=== PATIENT | female | born 1940 | race Caucasian/White ===

== ENCOUNTER 2017-01-25 12:04 | Inpatient (IN) ==
[2017-01-25] MEDS ORDERED: MIRAPEX PO PRN (14:49)
[2017-01-25] MEDS ORDERED: ULTRACET 37.5MG/325MG PO PRN (14:49)
[2017-01-25 15:20] LABS: MANUAL DIFF NEEDED? NO
[2017-01-25 15:24] LABS: BASO% 0.2 % (0.0-0.8); EOS# 0.03 X1000 (0.0-0.7); EOS% 0.3 % (0.0-10.0); HEMATOCRIT 42.5 % (37.0-47.0); HEMOGLOBIN 14.1 g/dL (12.0-16.0); IMM GRAN# 0.02 X1000 (0.0-0.04); IMM GRAN% 0.2 % (0.0-0.5); LYMPH# 1.09 X1000 (1.2-3.4); LYMPH% 12.6 % (20.5-51.1); MCHC 33.2 g/dL (33-37); MCV 93.4 FL (81-99); MONO# 0.85 X1000 (0.11-0.59); MONO% 9.8 % (1.7-9.3); MPV 10.4 FL (7.4-10.4); NEUT% 76.9 % (42.2-75.2); PLT 218 X1000 (130-400); RBC 4.55 XMIL (4.2-5.4)
[2017-01-25 15:44] LABS: ALBUMIN 4.2 g/dL (3.5-5.0); CALCIUM 9.7 mg/dL (8.8-10.2); POTASSIUM 3.6 mmol/L (3.5-5.1); TOTAL BILIRUBIN 0.38 mg/dL (0.20-1.00); TOTAL PROTEIN 7.5 g/dL (6.3-8.3)
[2017-01-25 15:46] LABS: HEMOGLOBIN A1C 5.6 % (4.8-6.0)
[2017-01-25 16:05] LABS: ALLEN TEST YES; BE -0.2 mmoll (-3.0-3.0); BLOOD TYPE ARTERIAL; DRAW SITE R RADIAL; METHB 0.5 % (0.0-1.5); PCO2(98.6) 44 mmHg (35-45); PO2(98.6) 69 mmHg (60-100); SAMPLE BLOOD; pH(98.6) 7.37 (7.35-7.45)
[2017-01-25 16:06] LABS: MODALITY CANNULA
--- NOTE | 2017-01-25 16:13 | EKG Report ---
Test Performed on : 01/25/2017 3:04:25 PM Test Reason : chest pain Blood Pressure : / mmHG Vent. Rate : 098 BPM Atrial Rate : 098 BPM P-R Int : 210 ms QRS Dur : 082 ms QT Int : 354 ms P-R-T Axes : 079 081 068 degrees QTc Int : 451 ms Sinus rhythm. with 1st degree AV block. Right atrial enlargement Borderline ECG When compared with ECG of 20-JUN-2014 18:43, No significant change was found Confirmed by Dayan ELLSWORTH, Ramirez Berrios ([id number]) on 01/25/2017 7:03:30 PM
[2017-01-25] MEDS: LEVAQUIN 500 MG/D5W 500 MG/100 ML IVPB IV SCH (16:35)
[2017-01-25] MEDS: LOVENOX SUBQ SCH (16:35)
[2017-01-25] MEDS: SOLU-MEDROL IV SCH (16:35)
[2017-01-25] MEDS: ZOSYN 3.375 GM/NS 3.375 GM/50 ML IVPB IV SCH ×2 (17:47→23:41)
[2017-01-25] MEDS ORDERED: DUONEB (A & A) INH ONE (18:10)
[2017-01-25 21:51] LABS: URINE MICRO REVIEW NEEDED? NO; URINE SOURCE CLEAN CATCH
[2017-01-25 22:00] LABS: BILIRUBIN URINE NEGATIVE (NEGATIVE); BLOOD URINE NEGATIVE (NEGATIVE); COLOR YELLOW; GLUCOSE URINE 100 mg/dL (NEGATIVE); LEUKOCYTES URINE NEGATIVE (NEGATIVE); NITRITE URINE POSITIVE (NEGATIVE); PH URINE 5.5; PROTEIN URINE TRACE mg/dL (NEGATIVE); SP GRAVITY URINE 1.019; TURBIDITY URINE HAZY (CLEAR); UROBILINOGEN URINE NORMAL (NORMAL)
--- NOTE | 2017-01-25 22:00 | HISTORY AND PHYSICAL ---
CHIEF COMPLAINT: Shortness of breath, cough, wheezing for the last 1 week. HISTORY OF PRESENT ILLNESS: She is 76-year-old pleasant white female, was evaluated in outpatient clinic with the above symptoms. She was treated with aggressive oral antibiotics. She failed to improve. Despite advice she continues to smoke. In my office she is wheezing. Chest x-ray showed COPD changes, early infiltrate in the left lower lobe. Basically admitted to the hospital for acute COPD exacerbation. She denies of any chest pain, shortness of breath, PND, orthopnea. PAST MEDICAL HISTORY: COPD, type 2 diabetes, chronic kidney disease, hyperlipidemia, glaucoma, gout, diverticulosis, CAD, history of acid reflux disease, restless legs syndrome, peripheral vascular disease. PAST SURGICAL HISTORY: Achilles tendon repair, bypass surgery, right benign breast biopsy, bilateral cataracts, left carotid endarterectomy, bilateral iliac stents, appendectomy, cholecystectomy, hysterectomy. MEDICINES: Flexeril 10 mg daily, Alphagan eye drops both eyes b.i.d., pravastatin 40 mg daily, Xalatan 1 drop both eyes b.i.d., Trusopt 1 drop both eyes b.i.d., Aldactone 25 daily, Singulair 10 mg daily, Prefest 1 tablet daily, Colace 100 p.o. b.i.d., vitamin D3 1000 units daily, Prilosec 40 mg daily, Lasix 20 mg daily, allopurinol 100 daily, Mirapex 0.25 mg daily, Ultracet 1 tab q.8, glipizide 5 mg daily, multivitamin 1 tablet daily, Pletal 50 p.o. b.i.d., Plavix 75 daily, gabapentin 200 daily in the evening 100 in the morning, aspirin 81 mg daily, Lopid 600 p.o. b.i.d. ALLERGIES: Reported to [facility]. SOCIAL HISTORY: , no children, lives in [place], smoking half a pack a day, retired. FAMILY HISTORY: Father of [place] at 71. Mom of kidney cancer at 75. HEALTH MAINTENANCE: Flu vaccine 2015, pneumococcal vaccine 2013, shingles 2011, tetanus 06/2014, mammography 2014, DEXA scan 2012, colonoscopy 2013. REVIEW OF SYSTEMS: HEENT: No headache, no vision problem, no earache, no sore throat. Neck: No goiter. No bruits, no lymphadenopathy. Cardiopulmonary: No chest pain, shortness of breath, cough, wheezing, no PND, no orthopnea. GI: No nausea, vomiting, abdominal pain. : No history of hesitancy, frequency. No swelling of feet. No claudication symptoms. Neuro: No focal symptoms, weakness or seizures. PHYSICAL EXAMINATION: VITAL SIGNS: Stable, afebrile and mild respiratory distress. HEENT: Atraumatic, normocephalic. Pupils equal, react to light. TMs are normal. Nose and throat congested. Postnasal drainage. CHEST: Bilateral wheezing, rhonchi. HEART: Sounds are regular, no murmur. BELLY: Soft, nontender. Good bowel sounds. No masses palpable. EXTREMITIES: No peripheral edema, cyanosis. NEURO: No obvious neurological deficits. INVESTIGATIONS: CBC. White cell count 8.6, hematocrit 42, platelets 218,000. ABG pH is 7.37, pCO2 44, PO2 69 on 38%. SMA 7, sodium 140, potassium 3.6, chloride 100, BUN 34, creatinine 1.6, glucose 142 and proBNP, cardiac enzymes were normal. Chest x-ray COPD changes, possible infiltrate in the left lower lobe. EKG normal sinus, nothing acute for ischemia. ASSESSMENT AND PLAN: 1. 76-year-old white female admitted to the hospital for acute chronic obstructive pulmonary disease exacerbation. Plan is IV steroids, IV Zosyn, bronchodilators, will continue Breo and Spiriva. 2. Coronary artery disease status post bypass, stable. 3. Peripheral vascular disease stable. 4. Glaucoma. Continue eye drops. 5. Chronic tobacco abuse. Nicotrol patches. 6. Hyperlipidemia on pravastatin. 7. Deep venous thrombosis, gastrointestinal prophylaxis with Lovenox and Protonix respectively. 8. Reconcile home medications and will follow up on the clinical course. cc: Valerio Venegas MD
[2017-01-25 22:01] LABS: UR EPITHELIAL CELLS <10 /HPF (<10); URINE BACTERIA 3+ /HPF; URINE RBC <10 /HPF (<10)
[2017-01-25] MEDS: NICODERM PATCH TD SCH (23:41)
[2017-01-25] MEDS: PLETAL PO SCH (23:42)
[2017-01-25] MEDS: ALPHAGAN P 0.1% OPHTH SOLN BOTH EYES SCH (23:42)
[2017-01-25] MEDS: COLACE PO SCH (23:42)
[2017-01-25] MEDS: XALATAN 0.005% OPH SOLN BOTH EYES SCH (23:43)
[2017-01-25] MEDS: TRUSOPT 2% OPH SOLN BOTH EYES SCH (23:43)
[2017-01-26] MEDS: SOLU-MEDROL IV SCH ×4 (00:07→23:15)
[2017-01-26] MEDS: FLEXERIL PO PRN (00:08)
[2017-01-26] MEDS: AMBIEN PO PRN (00:10)
[2017-01-26] MEDS ORDERED: DUONEB (A & A) INH ONE (00:49)
[2017-01-26] MEDS: DUONEB (A & A) INH SCH ×6 (02:05→23:13)
[2017-01-26] MEDS: ZOSYN 3.375 GM/NS 3.375 GM/50 ML IVPB IV SCH ×3 (06:00→17:29)
[2017-01-26] MEDS: GLUCOTROL PO SCH ×2 (06:00→08:26)
[2017-01-26] MEDS: BREO ELLIPTA 100/25 MCG INH INH SCH (08:20)
[2017-01-26] MEDS: SPIRIVA INH SCH (08:21)
[2017-01-26] MEDS: METAMUCIL PO SCH ×2 (08:25)
[2017-01-26] MEDS: NICODERM PATCH TD SCH (08:25)
[2017-01-26] MEDS: COLACE PO SCH ×2 (08:25→21:51)
[2017-01-26] MEDS: PLETAL PO SCH ×2 (08:25→21:51)
[2017-01-26] MEDS: VITAMIN D PO SCH (08:25)
[2017-01-26] MEDS: ZYLOPRIM PO SCH (08:25)
[2017-01-26] MEDS: ALDACTONE PO SCH (08:25)
[2017-01-26] MEDS: THERA M PLUS PO SCH (08:25)
[2017-01-26] MEDS: PRAVACHOL PO SCH (08:26)
[2017-01-26] MEDS: SINGULAIR PO SCH (08:26)
[2017-01-26] MEDS: TRUSOPT 2% OPH SOLN BOTH EYES SCH ×2 (08:26→21:52)
[2017-01-26] MEDS: PLAVIX PO SCH (08:26)
[2017-01-26] MEDS: PATIENT'S OWN MED PO SCH ×2 (08:26→08:28)
[2017-01-26] MEDS: TRICOR PO SCH (08:26)
[2017-01-26] MEDS: ALPHAGAN P 0.1% OPHTH SOLN BOTH EYES SCH ×2 (08:26→21:52)
[2017-01-26] MEDS: XALATAN 0.005% OPH SOLN BOTH EYES SCH ×2 (08:29→21:52)
--- NOTE | 2017-01-26 08:34 | Diag Imaging Result Document ---
PROCEDURE NAME: CHEST-2 VIEWS - 01/26/2017 FRONTAL AND LATERAL CHEST, TWO VIEWS: COMPARISON: 03/10/2016. FINDINGS: Sternal wires are present. The lungs are hyperexpanded. Mild increased AP diameter to the chest. The heart is not enlarged. The pulmonary vessels are small. No pleural effusions. No pneumonia. IMPRESSION: Emphysema.
--- NOTE | 2017-01-26 11:38 | PROGRESS NOTE ---
DATE: 01/26/2017 SUBJECTIVE: Still complains of wheezing and shortness of breath. No chest pain. REVIEW OF SYSTEMS: None reported. OBJECTIVE: Vital signs: Stable. Slightly tachycardic. HEENT: Within normal limits. Neck: Supple. Chest: Bilateral wheezing. Heart: Sounds are regular. Abdomen: Belly is soft, nontender. Extremities: No peripheral edema, cyanosis, clubbing. Labs: Reported follow up chest x-ray, COPD. Urine dipstick positive for UTI. ASSESSMENT AND PLAN: 1. Acute chronic obstructive pulmonary disease exacerbation. Continue on Levaquin, Zosyn, IV steroids, and bronchodilators. 2. Urinary tract infection. Continue present antibiotics. 3. Chronic tobacco abuse. Quit smoking. 4. Reconcile home medications. 5. Deep venous thrombosis prophylaxis with Lovenox. LEVEL OF DOCUMENTATION: 15 minutes. cc: Valerio Venegas MD
[2017-01-26] MEDS: LEVAQUIN 500 MG/D5W 500 MG/100 ML IVPB IV SCH (14:14)
[2017-01-26] MEDS: LOVENOX SUBQ SCH (14:14)
[2017-01-26] MEDS: NEURONTIN PO SCH ×2 (14:14→21:51)
[2017-01-27] MEDS: ZOSYN 3.375 GM/NS 3.375 GM/50 ML IVPB IV SCH ×4 (00:51→20:00)
[2017-01-27] MEDS: DUONEB (A & A) INH SCH ×6 (03:33→23:30)
[2017-01-27] MEDS: SOLU-MEDROL IV SCH ×3 (06:12→23:00)
[2017-01-27] MEDS: GLUCOTROL PO SCH (06:12)
[2017-01-27] MEDS: SPIRIVA INH SCH (08:28)
[2017-01-27] MEDS: BREO ELLIPTA 100/25 MCG INH INH SCH (08:28)
--- NOTE | 2017-01-27 09:37 | PROGRESS NOTE ---
DATE: 01/27/2017 SUBJECTIVE: The patient is better. Complains of leg pains and improved after Neurontin. No chest pain. Decreased shortness of breath, cough, wheezing. REVIEW OF SYSTEMS: Rest of the review of systems are normal. PHYSICAL EXAMINATION: Vital Signs: Stable, afebrile. Blood pressure is 120/57, 2 L nasal cannula 95%. HEENT: Examination within normal limits. Neck: Supple. No lymphadenopathy. No goiter. Chest: Bilateral wheezing improving. Heart: Heart sounds are regular. Abdomen: Belly is soft, nontender. Good bowel sounds. Extremities: No edema. INVESTIGATIONS: Cardiac enzymes and BNP were negative. ASSESSMENT AND PLAN: 1. Acute chronic obstructive pulmonary disease exacerbation is improving. Continue present medical therapy with intravenous Levaquin, intravenous Zosyn, and bronchodilators. 2. Tobacco abuse. Quit smoking. 3. Urinary tract infection. Follow up on culture and sensitivity. 4. Diabetes is well controlled and currently stable. LEVEL OF DOCUMENTATION: 15 minutes. cc: Valerio Venegas MD
[2017-01-27] MEDS: ALPHAGAN P 0.1% OPHTH SOLN BOTH EYES SCH ×2 (09:57→21:56)
[2017-01-27] MEDS: XALATAN 0.005% OPH SOLN BOTH EYES SCH ×2 (09:57→21:56)
[2017-01-27] MEDS: TRICOR PO SCH (09:58)
[2017-01-27] MEDS: METAMUCIL PO SCH ×2 (09:58)
[2017-01-27] MEDS: SINGULAIR PO SCH (09:58)
[2017-01-27] MEDS: VITAMIN D PO SCH (09:58)
[2017-01-27] MEDS: PRAVACHOL PO SCH (09:58)
[2017-01-27] MEDS: PATIENT'S OWN MED PO SCH (09:58)
[2017-01-27] MEDS: NEURONTIN PO SCH ×2 (09:58→21:59)
[2017-01-27] MEDS: PLAVIX PO SCH (09:58)
[2017-01-27] MEDS: ALDACTONE PO SCH (09:58)
[2017-01-27] MEDS: PLETAL PO SCH ×2 (09:58→21:59)
[2017-01-27] MEDS: THERA M PLUS PO SCH (09:58)
[2017-01-27] MEDS: TRUSOPT 2% OPH SOLN BOTH EYES SCH ×2 (09:58→21:57)
[2017-01-27] MEDS: NICODERM PATCH TD SCH (09:59)
[2017-01-27] MEDS: COLACE PO SCH ×2 (09:59→21:59)
[2017-01-27] MEDS: ZYLOPRIM PO SCH (09:59)
[2017-01-27] MEDS: LOVENOX SUBQ SCH (14:02)
[2017-01-27] MEDS: LEVAQUIN 500 MG/D5W 500 MG/100 ML IVPB IV SCH (15:58)
[2017-01-28] MEDS: ZOSYN 3.375 GM/NS 3.375 GM/50 ML IVPB IV SCH ×4 (02:00→19:38)
[2017-01-28] MEDS: DUONEB (A & A) INH SCH ×5 (03:40→22:51)
[2017-01-28] MEDS: SOLU-MEDROL IV SCH ×2 (06:40→15:10)
[2017-01-28] MEDS: GLUCOTROL PO SCH (06:40)
[2017-01-28] MEDS: SPIRIVA INH SCH (08:07)
[2017-01-28] MEDS: BREO ELLIPTA 100/25 MCG INH INH SCH (08:07)
[2017-01-28] MEDS: NICODERM PATCH TD SCH (09:36)
[2017-01-28] MEDS: METAMUCIL PO SCH ×2 (09:37)
[2017-01-28] MEDS: PLETAL PO SCH ×2 (09:37→21:18)
[2017-01-28] MEDS: ALDACTONE PO SCH (09:37)
[2017-01-28] MEDS: PLAVIX PO SCH (09:38)
[2017-01-28] MEDS: PRAVACHOL PO SCH (09:38)
[2017-01-28] MEDS: THERA M PLUS PO SCH (09:38)
[2017-01-28] MEDS: TRICOR PO SCH (09:38)
[2017-01-28] MEDS: COLACE PO SCH ×2 (09:38→21:19)
[2017-01-28] MEDS: VITAMIN D PO SCH (09:38)
[2017-01-28] MEDS: NEURONTIN PO SCH ×2 (09:38→21:19)
[2017-01-28] MEDS: SINGULAIR PO SCH (09:38)
[2017-01-28] MEDS: ALPHAGAN P 0.1% OPHTH SOLN BOTH EYES SCH ×2 (09:39→21:17)
[2017-01-28] MEDS: TRUSOPT 2% OPH SOLN BOTH EYES SCH ×2 (09:39→21:17)
[2017-01-28] MEDS: XALATAN 0.005% OPH SOLN BOTH EYES SCH ×2 (09:39→21:17)
[2017-01-28] MEDS: ZYLOPRIM PO SCH (09:40)
[2017-01-28] MEDS: PATIENT'S OWN MED PO SCH (09:40)
--- NOTE | 2017-01-28 10:42 | PROGRESS NOTE ---
DATE: 01/28/2017 SUBJECTIVE: The patient is not offering any complaints. No chest pain. No shortness of breath. No PND. No orthopnea. Wheezing is improving. REVIEW OF SYSTEMS: None reported. PHYSICAL EXAMINATION: Vital Signs: Vitals are stable. HEENT: Examination within normal limits. Neck: Supple. No lymphadenopathy. Lungs: Scattered wheezing, mostly on the left side. Heart: Heart sounds are regular. Rest of the examination is benign. ASSESSMENT AND PLAN: 1. Acute chronic obstructive pulmonary disease exacerbation, currently stable on intravenous Levaquin and intravenous Flagyl. 2. Diabetes is well controlled. 3. Deep venous thrombosis prophylaxis. 4. History of urinary tract infection. Continue present antibiotics. Repeat urinalysis only if she has symptoms. 5. Level of documentation, 15 minutes. cc: Valerio Venegas MD
[2017-01-28] MEDS: LEVAQUIN 500 MG/D5W 500 MG/100 ML IVPB IV SCH (15:11)
[2017-01-28] MEDS: LOVENOX SUBQ SCH (15:11)
[2017-01-29] MEDS: FLEXERIL PO PRN ×2 (01:06→15:55)
[2017-01-29] MEDS: ZOSYN 3.375 GM/NS 3.375 GM/50 ML IVPB IV SCH ×4 (01:11→20:24)
[2017-01-29] MEDS: DUONEB (A & A) INH SCH ×6 (03:48→22:54)
[2017-01-29] MEDS: SOLU-MEDROL IV SCH ×3 (07:19→22:06)
[2017-01-29] MEDS: GLUCOTROL PO SCH (07:19)
[2017-01-29] MEDS: BREO ELLIPTA 100/25 MCG INH INH SCH (07:57)
[2017-01-29] MEDS: SPIRIVA INH SCH (07:57)
[2017-01-29] MEDS: TRUSOPT 2% OPH SOLN BOTH EYES SCH ×2 (09:52→20:23)
[2017-01-29] MEDS: ALPHAGAN P 0.1% OPHTH SOLN BOTH EYES SCH ×2 (09:53→20:23)
[2017-01-29] MEDS: XALATAN 0.005% OPH SOLN BOTH EYES SCH ×2 (09:53→20:23)
[2017-01-29] MEDS: COLACE PO SCH ×2 (09:57→20:24)
[2017-01-29] MEDS: PLETAL PO SCH ×2 (09:57→20:24)
[2017-01-29] MEDS: VITAMIN D PO SCH (09:57)
[2017-01-29] MEDS: PRAVACHOL PO SCH (09:57)
[2017-01-29] MEDS: TRICOR PO SCH (09:57)
[2017-01-29] MEDS: METAMUCIL PO SCH ×2 (09:57)
[2017-01-29] MEDS: NEURONTIN PO SCH ×2 (09:57→20:24)
[2017-01-29] MEDS: SINGULAIR PO SCH (09:57)
[2017-01-29] MEDS: ALDACTONE PO SCH (09:57)
[2017-01-29] MEDS: PLAVIX PO SCH (09:57)
[2017-01-29] MEDS: THERA M PLUS PO SCH (09:58)
[2017-01-29] MEDS: NICODERM PATCH TD SCH (09:58)
[2017-01-29] MEDS: ZYLOPRIM PO SCH (09:58)
[2017-01-29] MEDS: PATIENT'S OWN MED PO SCH (09:59)
[2017-01-29 11:03] LABS: URINE MICRO REVIEW NEEDED? NO; URINE SOURCE VOIDED
[2017-01-29 11:07] LABS: BILIRUBIN URINE NEGATIVE (NEGATIVE); BLOOD URINE NEGATIVE (NEGATIVE); COLOR YELLOW; GLUCOSE URINE NEGATIVE (NEGATIVE); LEUKOCYTES URINE NEGATIVE (NEGATIVE); NITRITE URINE NEGATIVE (NEGATIVE); PROTEIN URINE NEGATIVE (NEGATIVE); SP GRAVITY URINE 1.017; TURBIDITY URINE CLEAR (CLEAR); UR EPITHELIAL CELLS <10 /HPF (<10); URINE BACTERIA NEGATIVE /HPF; URINE RBC <10 /HPF (<10); URINE WBC <10 /HPF (<10); UROBILINOGEN URINE NORMAL (NORMAL)
--- NOTE | 2017-01-29 12:06 | PROGRESS NOTE ---
DATE: 01/29/2017 SUBJECTIVE: A little bit of shortness of breath, wheezing, slowly improving. REVIEW OF SYSTEMS: None reported other than recurrent UTI. OBJECTIVE: Vital Signs: Stable. HEENT: Within normal limits. Neck: Supple. No lymphadenopathy. No goiter. Chest: Bilateral air entry. No rales, no wheezing. Heart: Sounds are regular. Abdomen: Belly is soft, nontender. Good bowel sounds. No masses palpable. Neurologic: Nonfocal. INVESTIGATIONS: CBC: White cell count 8.6, hematocrit 42, platelets 218,000. ABG, pH is 7.37, pCO2 44, PO2 69. SMA 7, creatinine is 1.6. Urinalysis positive for nitrate. ASSESSMENT AND PLAN: 1. Acute chronic obstructive pulmonary disease exacerbation slowly improving. Continue the present medical therapy. Hopefully, he will be discharged in the morning. 2. Recurrent urinary tract infection. Follow up UA and C S. LEVEL OF DOCUMENTATION: Fifteen minutes. cc: Valerio Venegas MD
[2017-01-29] MEDS: LEVAQUIN 500 MG/D5W 500 MG/100 ML IVPB IV SCH (14:41)
[2017-01-29] MEDS: LOVENOX SUBQ SCH (14:41)
[2017-01-30] MEDS: ZOSYN 3.375 GM/NS 3.375 GM/50 ML IVPB IV SCH ×2 (01:49→09:31)
[2017-01-30] MEDS: SOLU-MEDROL IV SCH ×4 (03:24→20:59)
[2017-01-30] MEDS: DUONEB (A & A) INH SCH ×6 (03:46→22:52)
[2017-01-30] MEDS: GLUCOTROL PO SCH (06:24)
[2017-01-30 07:19] LABS: BASO% 0.1 % (0.0-0.8); EOS# 0.01 X1000 (0.0-0.7); EOS% 0.1 % (0.0-10.0); IMM GRAN# 0.16 X1000 (0.0-0.04); IMM GRAN% 1.5 % (0.0-0.5); LYMPH# 0.77 X1000 (1.2-3.4); LYMPH% 7.3 % (20.5-51.1); MANUAL DIFF NEEDED? YES; MCH 30.4 PG (27-31); MCHC 32.6 g/dL (33-37); MCV 93.3 FL (81-99); MONO# 0.51 X1000 (0.11-0.59); MONO% 4.8 % (1.7-9.3); MPV 11.2 FL (7.4-10.4); NEUT% 86.2 % (42.2-75.2); PLT 205 X1000 (130-400); RBC 4.61 XMIL (4.2-5.4)
[2017-01-30 07:35] LABS: CALCIUM 9.4 mg/dL (8.8-10.2)
[2017-01-30 07:51] LABS: BANDS 2 % (0-1); LYMPHS 16 % (21-51); MONO 2 % (1-9)
[2017-01-30] MEDS: BREO ELLIPTA 100/25 MCG INH INH SCH (08:42)
[2017-01-30] MEDS: SPIRIVA INH SCH (08:43)
[2017-01-30] MEDS: ALPHAGAN P 0.1% OPHTH SOLN BOTH EYES SCH ×2 (09:31→20:55)
[2017-01-30] MEDS: TRUSOPT 2% OPH SOLN BOTH EYES SCH ×2 (09:31→20:55)
[2017-01-30] MEDS: NICODERM PATCH TD SCH (09:31)
[2017-01-30] MEDS: XALATAN 0.005% OPH SOLN BOTH EYES SCH ×2 (09:32→20:55)
[2017-01-30] MEDS: ZYLOPRIM PO SCH (09:32)
[2017-01-30] MEDS: VITAMIN D PO SCH (09:33)
[2017-01-30] MEDS: COLACE PO SCH ×2 (09:33→20:54)
[2017-01-30] MEDS: NEURONTIN PO SCH ×2 (09:33→20:54)
[2017-01-30] MEDS: PLAVIX PO SCH (09:33)
[2017-01-30] MEDS: METAMUCIL PO SCH ×2 (09:33)
[2017-01-30] MEDS: THERA M PLUS PO SCH (09:33)
[2017-01-30] MEDS: TRICOR PO SCH (09:33)
[2017-01-30] MEDS: PLETAL PO SCH ×2 (09:33→20:54)
[2017-01-30] MEDS: ALDACTONE PO SCH (09:33)
[2017-01-30] MEDS: PRAVACHOL PO SCH (09:33)
[2017-01-30] MEDS: SINGULAIR PO SCH (09:33)
[2017-01-30] MEDS: PATIENT'S OWN MED PO SCH (09:34)
[2017-01-30] MEDS: INVANZ 1 GM/NS 1 GM/50 ML IVPB IV SCH (14:35)
[2017-01-30] MEDS: LOVENOX SUBQ SCH (14:36)
--- NOTE | 2017-01-30 14:36 | PROGRESS NOTE ---
DATE: 01/30/2017 SUBJECTIVE: Patient is doing very well. URI symptoms improving. Complains of dysuria. Old charts are reviewed. She was treated E. coli ESBL positive and resistant to antibiotics. REVIEW OF SYSTEMS: None reported except dysuria. On exam vitals are stable.HEENT: Within normal limits. Neck: Supple. No lymphadenopathy. No goiter. Chest: Wheezing improved. Heart: Sounds are regular. Abdomen: Belly is soft, nontender. Good bowel sounds. Urine cultures repeat was pending but UA dipstick is positive ESBL positive E. coli. ASSESSMENT AND PLAN: 1. ESBL E. coli, and we will discontinue the Zosyn and changing to Invanz 1 g daily. 2. COPD is better. 3. Follow up on the urine for C and S. Decrease the IV steroids. We will hold the discharge today. Discussed about ESBL E. coli, and continue to abstain from smoking. Level of documentation is 25 minutes. cc: Valerio Venegas MD
[2017-01-30] MEDS: LEVAQUIN 500 MG/D5W 500 MG/100 ML IVPB IV SCH (15:16)
[2017-01-30] MEDS: FLEXERIL PO PRN (23:50)
[2017-01-30] MEDS: AMBIEN PO PRN (23:50)
[2017-01-31] MEDS: DUONEB (A & A) INH SCH ×6 (03:39→22:55)
[2017-01-31] MEDS: GLUCOTROL PO SCH (06:13)
[2017-01-31] MEDS: SOLU-MEDROL IV SCH ×3 (06:13→21:28)
[2017-01-31] MEDS: SPIRIVA INH SCH (07:33)
[2017-01-31] MEDS: BREO ELLIPTA 100/25 MCG INH INH SCH (07:34)
[2017-01-31] MEDS: METAMUCIL PO SCH ×2 (09:12)
[2017-01-31] MEDS: ALDACTONE PO SCH (09:12)
[2017-01-31] MEDS: COLACE PO SCH ×2 (09:12→21:28)
[2017-01-31] MEDS: TRICOR PO SCH (09:12)
[2017-01-31] MEDS: PRAVACHOL PO SCH (09:12)
[2017-01-31] MEDS: NEURONTIN PO SCH ×2 (09:12→21:28)
[2017-01-31] MEDS: PLETAL PO SCH ×2 (09:12→21:28)
[2017-01-31] MEDS: VITAMIN D PO SCH (09:12)
[2017-01-31] MEDS: PLAVIX PO SCH (09:12)
[2017-01-31] MEDS: NICODERM PATCH TD SCH (09:12)
[2017-01-31] MEDS: SINGULAIR PO SCH (09:12)
[2017-01-31] MEDS: PATIENT'S OWN MED PO SCH (09:13)
[2017-01-31] MEDS: THERA M PLUS PO SCH (09:13)
[2017-01-31] MEDS: TRUSOPT 2% OPH SOLN BOTH EYES SCH ×2 (09:13→21:13)
[2017-01-31] MEDS: ZYLOPRIM PO SCH (09:13)
[2017-01-31] MEDS: XALATAN 0.005% OPH SOLN BOTH EYES SCH ×2 (09:14→21:13)
[2017-01-31] MEDS: ALPHAGAN P 0.1% OPHTH SOLN BOTH EYES SCH ×2 (09:14→21:13)
[2017-01-31] MEDS: INVANZ 1 GM/NS 1 GM/50 ML IVPB IV SCH (13:43)
--- NOTE | 2017-01-31 16:20 | PROGRESS NOTE ---
DATE: 01/31/2017 SUBJECTIVE: Complaints of lower abdominal pain, dysuria. URI symptoms are improving. REVIEW OF SYSTEMS: None reported. PHYSICAL EXAMINATION: Vital Signs: Afebrile. Vitals are stable. HEENT: Within normal limits. Neck: Supple. No lymphadenopathy. No goiter. Chest: Decreased wheezing. Cardiovascular: Heart sounds are regular. Abdomen: Belly is soft, nontender. Good bowel sounds. No masses palpable. LABS: None done. Repeat urinalysis is clear. Cultures are negative. ASSESSMENT AND PLAN: 1. Acute chronic obstructive pulmonary disease exacerbation, improving. 2. Recurrent urinary tract infection, extended spectrum beta-lactamase positive, Escherichia coli. Ultrasound of the renal and bladder. Continue on IV Invanz and Levaquin. Decrease the prednisone to 40 mg IV q.12. Discussed with the patient. Follow up on ultrasound. LEVEL OF DOCUMENTATION: 25 minutes. cc: Valerio Venegas MD
--- NOTE | 2017-01-31 16:25 | Diag Imaging Result Document ---
PROCEDURE NAME: US ABDOMEN-COMPLETE - 01/31/2017 ABDOMINAL ULTRASOUND: FINDINGS: Normal pancreas, aorta, and inferior vena cava. The gallbladder has been removed. No focal hepatic abnormality. Normal right kidney with a 1.7 cm cyst in the mid kidney. No hydronephrosis. The common bile duct measures 1.1 cm. The spleen is not enlarged. No ascites. Normal left kidney. No hydronephrosis. IMPRESSION: 1. Cholecystectomy. 2. Small right renal cyst.
--- NOTE | 2017-01-31 16:26 | Diag Imaging Result Document ---
PROCEDURE NAME: US PELVIC NON-EDUCATIONAL/DEVELOPMENT ASSISTANT COMPLETE - 01/31/2017 PELVIC ULTRASOUND: FINDINGS: Neither the uterus nor the ovaries are identified. These apparently have been removed. The urinary bladder is mild to moderately distended. No focal abnormality. No adnexal mass. No free fluid. IMPRESSION: Negative exam.
[2017-01-31] MEDS: LEVAQUIN 500 MG/D5W 500 MG/100 ML IVPB IV SCH (16:59)
[2017-01-31] MEDS: LOVENOX SUBQ SCH (16:59)
[2017-01-31] MEDS: FLEXERIL PO PRN (21:35)
[2017-02-01] MEDS: DUONEB (A & A) INH SCH ×6 (03:48→22:53)
[2017-02-01] MEDS: GLUCOTROL PO SCH (06:11)
[2017-02-01] MEDS: BREO ELLIPTA 100/25 MCG INH INH SCH (07:44)
[2017-02-01] MEDS: SPIRIVA INH SCH (07:44)
[2017-02-01] MEDS: PLAVIX PO SCH (09:12)
[2017-02-01] MEDS: NICODERM PATCH TD SCH (09:12)
[2017-02-01] MEDS: SINGULAIR PO SCH (09:12)
[2017-02-01] MEDS: VITAMIN D PO SCH (09:12)
[2017-02-01] MEDS: METAMUCIL PO SCH ×2 (09:12)
[2017-02-01] MEDS: COLACE PO SCH ×2 (09:13→20:16)
[2017-02-01] MEDS: TRICOR PO SCH (09:13)
[2017-02-01] MEDS: PRAVACHOL PO SCH (09:13)
[2017-02-01] MEDS: ALPHAGAN P 0.1% OPHTH SOLN BOTH EYES SCH ×2 (09:13→20:15)
[2017-02-01] MEDS: THERA M PLUS PO SCH (09:13)
[2017-02-01] MEDS: PLETAL PO SCH ×2 (09:13→20:16)
[2017-02-01] MEDS: PATIENT'S OWN MED PO SCH (09:13)
[2017-02-01] MEDS: NEURONTIN PO SCH ×2 (09:13→20:16)
[2017-02-01] MEDS: ALDACTONE PO SCH (09:13)
[2017-02-01] MEDS: SOLU-MEDROL IV SCH ×2 (09:13→20:16)
[2017-02-01] MEDS: TRUSOPT 2% OPH SOLN BOTH EYES SCH ×2 (09:14→20:15)
[2017-02-01] MEDS: ZYLOPRIM PO SCH (09:14)
[2017-02-01] MEDS: XALATAN 0.005% OPH SOLN BOTH EYES SCH ×2 (09:14→20:15)
--- NOTE | 2017-02-01 10:17 | PROGRESS NOTE ---
DATE: 02/01/2017 SUBJECTIVE: Lower abdominal discomfort is improving. Patient has abdominal ultrasound, pelvic ultrasound. Bladder was distended. No masses, otherwise a benign cyst. The patient has ESBL E. coli on Invanz. REVIEW OF SYSTEMS: She has some leaky bladder with cough and congestion. PHYSICAL EXAMINATION: Vital Signs: Stable. HEENT: Examination within normal limits. Chest: Clear. Heart: Heart sounds are regular. Abdomen: Belly is soft, nontender. Good bowel sounds. No masses palpable. Extremities: No peripheral edema, cyanosis, clubbing. Neurologic: Examination nonfocal. LABORATORY DATA: Followup repeat urine cultures are negative. Baseline creatinine is 1.8. ASSESSMENT AND PLAN: 1. Acute chronic obstructive pulmonary disease, improving. 2. Recurrent urinary tract infection, suspicious for cystocele based on the clinical examination. Check the postvoid residual urine and continue on intravenous Invanz. 3. Continue present medical therapy. Discussed with the family. We will follow up. cc: Valerio Venegas MD
[2017-02-01] MEDS: INVANZ 1 GM/NS 1 GM/50 ML IVPB IV SCH (14:10)
[2017-02-01] MEDS: LOVENOX SUBQ SCH (15:05)
[2017-02-01] MEDS: LEVAQUIN 500 MG/D5W 500 MG/100 ML IVPB IV SCH (15:05)
[2017-02-02] MEDS: DUONEB (A & A) INH SCH ×4 (03:55→15:33)
[2017-02-02] MEDS: GLUCOTROL PO SCH (07:21)
[2017-02-02] MEDS: SPIRIVA INH SCH (07:32)
[2017-02-02] MEDS: BREO ELLIPTA 100/25 MCG INH INH SCH (07:32)
[2017-02-02] MEDS: PLAVIX PO SCH (08:29)
[2017-02-02] MEDS: VITAMIN D PO SCH (08:29)
[2017-02-02] MEDS: NICODERM PATCH TD SCH (08:29)
[2017-02-02] MEDS: SINGULAIR PO SCH (08:29)
[2017-02-02] MEDS: ZYLOPRIM PO SCH (08:29)
[2017-02-02] MEDS: TRICOR PO SCH (08:29)
[2017-02-02] MEDS: PLETAL PO SCH (08:29)
[2017-02-02] MEDS: METAMUCIL PO SCH ×2 (08:29)
[2017-02-02] MEDS: ALDACTONE PO SCH (08:29)
[2017-02-02] MEDS: PRAVACHOL PO SCH (08:29)
[2017-02-02] MEDS: THERA M PLUS PO SCH (08:30)
[2017-02-02] MEDS: NEURONTIN PO SCH (08:30)
[2017-02-02] MEDS: PATIENT'S OWN MED PO SCH (08:30)
[2017-02-02] MEDS: SOLU-MEDROL IV SCH (08:30)
[2017-02-02] MEDS: COLACE PO SCH (08:30)
[2017-02-02] MEDS: ALPHAGAN P 0.1% OPHTH SOLN BOTH EYES SCH (08:31)
[2017-02-02] MEDS: TRUSOPT 2% OPH SOLN BOTH EYES SCH (08:31)
[2017-02-02] MEDS: XALATAN 0.005% OPH SOLN BOTH EYES SCH (08:42)
--- NOTE | 2017-02-02 10:42 | PROGRESS NOTE ---
DATE: 02/02/2017 SUBJECTIVE: The patient continues to have lower abdominal pain. UTI symptoms are improved. Bladder scan yesterday showed 380 in the morning, afternoon 220 mL, this morning, 400. She is getting straight cath in and out. She complains of dysuria and pressure. REVIEW OF SYSTEMS: None reported. OBJECTIVE: Vital signs are stable. Afebrile. Pulse is 97, blood pressure 126/60, room air saturation is 93%. HEENT: Within normal limits. Neck: Supple. No lymphadenopathy. Chest: Clear. Heart sounds are regular. Abdomen: Belly is soft. Pressure in the lower abdomen. No peripheral edema. Neurologic: No focal symptoms. ASSESSMENT AND PLAN: 1. Acute chronic obstructive pulmonary disease exacerbation, improving. 2. Bladder distention with cystocele with Escherichia coli extended spectrum beta lactamase, on IV Invanz. Options are discussed. The patient wants a second opinion. Urogynecology consult with Dr. Cerrato. We will hold the discharge. We will discuss with Dr. Cerrato and make some plans. Discussed with the patient. Level of documentation is 25 minutes. cc: Valerio Venegas MD
--- NOTE | 2017-02-02 13:17 | CONSULTATION ---
DATE OF CONSULTATION: 02/02/2017 SUBJECTIVE: Patient is a 76-year-old, nulligravid patient who was admitted by Dr. OLAMIDE Venegas, approximately 8 days ago for COPD and worsening dyspnea. Patient has been hospitalized; however, the last couple diet she has noticed having increasing lower abdominal discomfort and upon evaluation was found to have a UTI. She has been now treated with IV antibiotics. I am consulted because Dr. Venegas states she has a cystocele. Patient states that she began having lower abdominal pain approximately 4 months ago, that it is intermittent and comes and goes. She has a history of a prior hysterectomy with bilateral salpingo-oophorectomy performed by Dr. Fernandez in the [place] area approximately 20 years ago. So patient has no internal genitalia. There is concern regarding her possible having some pelvic organ prolapse and so I was consulted. PAST MEDICAL HISTORY: 1. COPD. 2. Diabetes. 3. Hypertension. 4. Chronic kidney disease. 5. Hyperlipidemia. 6. Glaucoma. 7. Coronary artery disease. 8. Gastroesophageal reflux. 9. Restless legs syndrome. 10. Peripheral vascular disease. PAST SURGICAL HISTORY: 1. Positive for Achilles tendon repair. 2. Coronary artery bypass surgery. 3. Benign right breast biopsy. 4. Bilateral iliac stents. 5. Appendectomy. 6. The above-stated hysterectomy. 7. Cholecystectomy. 8. Left carotid endarterectomy. SOCIAL HISTORY: Positive for continued tobacco use. FAMILY HISTORY: Noncontributory regarding genetic disorders. PHYSICAL EXAM: General: Patient is alert oriented x3 and sitting on the side of the bed. Her daughter is here with her today. OBJECTIVE: Afebrile. Vital signs stable. HEENT: Normocephalic and atraumatic. Pupils are equally round and reactive. Extraocular muscles were intact. Grossly she appears to be within normal limits. Abdomen: Was soft, and nontender. Exam: Shows absolutely no prolapse whatsoever. She has normal hypoestrogenic external genitalia. Vaginal exam shows no vaginal cuff descensus. No masses are palpated. No abnormalities with pain on bimanual exam. Neurologic: Afocal. Extremities: With mild edema, but no clubbing or cyanosis. ASSESSMENT AND PLAN: Patient having issues with urinary retention based on bladder scanner evaluations. She has also been treated for recurring UTIs by Dr. Venegas. However all of her evaluations are on "clean" specimens. The patient does not separate her labia with providing a clean-catch urine. She has difficulty with flexibility in doing this, and she has a very small introitus. I have a strong suspicion that this is all related to contamination. Future evaluations should necessitate a straight catheterization for obtaining urine; however, because of her diabetes and peripheral neuropathy and issues with that, I have suggested she undergo urodynamic evaluation for evaluation of the detrusor muscle. I provided the patient with this information for calling my office. That equipment is not available in this facility setting. ASSESSMENT AND PLAN: Patient is to call our office and get scheduled for urodynamic evaluation for evaluation of detrusor function in light of her neurologic/vascular/diabetes issues. cc: MD Valerio Puente MD
[2017-02-02 14:14] VITALS: BP 129/61
[2017-02-02] MEDS: INVANZ 1 GM/NS 1 GM/50 ML IVPB IV SCH (14:17)
[2017-02-02] MEDS: LEVAQUIN 500 MG/D5W 500 MG/100 ML IVPB IV SCH (15:07)
[2017-02-02] MEDS: LOVENOX SUBQ SCH (15:08)
--- NOTE | 2017-02-03 09:26 | DISCHARGE SUMMARY ---
ADMISSION DATE: 01/25/2017 DISCHARGE DATE: 02/02/2017 DISCHARGING DIAGNOSIS: Acute chronic obstructive pulmonary disease exacerbation with bronchopneumonia. SECONDARY DIAGNOSES: 1. Bladder retention. 2. Possible cystocele. 3. Recurrent urinary tract infection with extended-spectrum B-lactamase positive Escherichia coli. 4. Chronic obstructive pulmonary disease. 5. Type 2 diabetes. 6. Chronic kidney disease stage II, creatinine 1.8. 7. Hyperlipidemia. 8. Glaucoma. 9. Gout. 10. Diverticulosis. 11. Coronary artery disease, status post bypass surgery. 12. History of acid reflux disease. 13. History of restless leg syndrome. 14. Peripheral vascular disease. CONSULTS: Dr. Cerrato. PROCEDURE: Bladder scan, 300-400 mL of urine. BRIEF HISTORY: Please see the H and P that was done on 01/25/2017. In brief, she is a 76-year- old, pleasant, white female admitted to the hospital basically with cough, congestion, and wheezing. She also had a bronchopneumonia. HOSPITAL COURSE: She was given oxygen, bronchodilators, IV Zosyn and Levaquin. She is slowly improving. Hospital course was prolonged due to recurrent UTI and bladder retention. She was complaining of abdominal pain. Pelvic ultrasound and ultrasound of the kidneys were done. It showed moderately distended bladder. Frequent bladder scans showed significant retention of urine. She did require straight catheterization in and out. Dr. Cerrato was consulted. He is going to do urodynamic study as an outpatient after she is discharged from the hospital. LABORATORIES: CBC: White cell count 10, hematocrit 43, platelets 205,000. ABG: PH is 7.37, pCO2 44, PO2 69 on 28%. SMA 7: Sodium 142, potassium 5, chloride 103, BUN 50, creatinine 1.8, glucose 140. Urinalysis is clear. Followup urine cultures were negative. Previously, she had a UTI with ESBL positive. Chest x-ray was stable. DISCHARGE INSTRUCTIONS: DuoNeb 1 puff t.i.d., discontinue Flexeril, pravastatin 40 daily, Alphagan 1 drop in both eyes b.i.d., Xalatan 1 drop in both b.i.d., Trusopt 1 drop in both eyes b.i.d., Aldactone 25 daily, Singulair 10 daily, Prefest 1 tablet daily, Colace 100 p.o. b.i.d., vitamin D3 1000 units daily, Prilosec 40 daily, Lasix 20 daily, allopurinol 100 daily, Mirapex 0.25 daily, Ultracet 1 tablet q.8 as needed, glipizide 5 mg daily, multivitamin 1 tablet daily, Pletal 50 p.o. b.i.d., Plavix 75 daily, Neurontin 200 bedtime and 100 in the morning, aspirin 81 mg daily, gemfibrozil 600 p.o. b.i.d., Macrodantin 50 p.o. b.i.d. Follow up with Dr. Cerrato on 02/03/2017 for urodynamic study. Follow up in my office next week. cc: MD Alex Melvin MD
== END 2017-02-02 16:38 | disposition home or self-care (01) ==
LOC: DIRADM 12:04 → 3N 13:01
PROVIDERS: ADMIT Internal Medicine; ATTEND Internal Medicine

== ENCOUNTER 2017-07-15 12:09 | Inpatient (IN) ==
[2017-07-15 19:35] LABS: ALLEN TEST YES; BE 2.4 mmoll (-3.0-3.0); BLOOD TYPE ARTERIAL; DRAW SITE R RADIAL; METHB 0.1 % (0.0-1.5); O2(CT) 17.3 mL/dL (15.0-23.0); PCO2(98.6) 42 mmHg (35-45); PO2(98.6) 58 mmHg (60-100); SAMPLE BLOOD; SAO2 92.6 % (95.0-100.0); THB 13.9 g/dL (11.5-17.4); pH(98.6) 7.42 (7.35-7.45)
[2017-07-15 19:36] LABS: MODALITY ROOM AIR
[2017-07-15 20:33] LABS: HEMATOCRIT 40.8 % (37.0-47.0); HEMOGLOBIN 13.6 g/dL (12.0-16.0); MCH 31.6 PG (27-31); MCHC 33.3 g/dL (33-37); MCV 94.7 FL (81-99); MPV 11.9 FL (7.4-10.4); RBC 4.31 XMIL (4.2-5.4)
[2017-07-15 20:59] LABS: POTASSIUM 3.4 mmol/L (3.5-5.1); TOTAL BILIRUBIN 0.17 mg/dL (0.20-1.00); TOTAL PROTEIN 6.6 g/dL (6.3-8.3)
[2017-07-15] MEDS: PLETAL PO SCH (21:05)
[2017-07-15] MEDS: NEURONTIN PO SCH (21:05)
[2017-07-15] MEDS: LOVENOX SUBQ SCH (21:06)
[2017-07-15] MEDS: LOPID PO SCH (21:06)
[2017-07-15] MEDS: PROTONIX IV SCH (21:06)
[2017-07-15] MEDS: SODIUM CHLORIDE 0.9% INJ SCH (21:06)
[2017-07-15] MEDS: SOLU-MEDROL IV SCH (21:06)
[2017-07-15] MEDS: ZOSYN 3.375 GM in NS 50 ML IV SCH (21:07)
[2017-07-15] MEDS: NS 1,000 ML IV SCH (21:07)
--- NOTE | 2017-07-15 21:35 | HISTORY AND PHYSICAL ---
CHIEF COMPLAINT: The patient's complains of cough and chest congestion for the last 3 weeks. HISTORY OF PRESENT ILLNESS: She is a 77-year-old pleasant, white female, noncompliant, continues to smoke. Came in my office with 3-week history of URI symptoms and bronchitis. Upon exam she has crackles in the right base. Chest x-ray, early pneumonia on the right side. She has been hospitalized for right lower lobe pneumonia and further workup. PAST MEDICAL HISTORY: COPD, type 2 diabetes, hyperlipidemia, glaucoma, gout, diverticulosis, coronary artery disease, neurogenic bladder, peptic ulcer disease, peripheral vascular disease, restless legs syndrome. PAST SURGICAL HISTORY: Bypass surgery, bilateral cataracts, benign breast biopsy, Achilles tendon repair, left carotid endarterectomy, bilateral iliac stents, appendectomy, cholecystectomy, hysterectomy, InterStim placement by Dr. Cerrato. MEDICATIONS: Cyclobenzaprine 10 mg daily, DuoNeb nebulizers q.6 h., Alphagan eye drops both eyes b.i.d., pravastatin 40 daily, Xalatan 1 drop both eyes b.i.d., Trusopt 2 drops b.i.d., Singulair 10 daily, Prefest 1 tablet daily, Prilosec 40 daily, Lasix 20 daily, Ultracet as needed, glipizide 5 mg daily, multivitamin 1 tablet daily, Pletal 50 mg p.o. b.i.d., Plavix 75 daily, gabapentin 200 daily and gabapentin 100 at bedtime, aspirin 80 mg daily, gemfibrozil 6 b.i.d., Breo 1 puff daily. ALLERGIES: Diltiazem. SOCIAL HISTORY: Single. No children. Smoking half a pack a day. Lives in [place]. FAMILY HISTORY: Father of [place] at 71. Mom of kidney cancer at 75. HEALTH MAINTENANCE: Flu vaccine 2015, pneumococcal vaccine 2013, shingles 09/07/2012, tetanus June 2014, mammography July 2015, DEXA scan 2012, colonoscopy 2013. REVIEW OF SYSTEMS: HEENT: No headache. No vision problem. No earache. No sore throat. Neck: No goiter. No lymphadenopathies. Cardiopulmonary: Cough, congestion, wheezing. No chest pain. GI: No nausea, vomiting, abdominal pain. : Neurogenic bladder symptoms improved after InterStim placement. Extremities: No swelling of legs. Neurologic: No focal symptoms or weakness. PHYSICAL EXAMINATION: VITAL SIGNS: Low-grade fever. Vitals are stable. Pulse oximetry 85%. 5 feet 2 inches, 140 pounds. HEENT: Atraumatic, normocephalic. Pupils equal, reactive to light. TMs are normal. Nose and throat congested. NECK: Supple. JVD is normal. No lymphadenopathy. CHEST: Bilateral expiratory wheezing. Crackles in the right base. HEART: Sounds are regular. ABDOMEN: Belly is soft, nontender. Good bowel sounds. No masses palpable. EXTREMITIES: No peripheral edema, cyanosis. NEUROLOGIC: No obvious neurological deficits. INVESTIGATIONS: CBC: White cell count 5.7, hematocrit 40, platelets 191,000. ABG with pH is 7.42, pCO2 42, pO2 58, pulse oximetry 88% on room air. SMA 7 is pending. Chest x-ray: Right lower lobe pneumonia. ASSESSMENT AND PLAN: A 77-year-old white female, admitted to the hospital with a chronic obstructive pulmonary disease exacerbation and right lower lobe pneumonia. Plan is IV Zosyn and IV steroids, IV Levaquin, bronchodilators. 1. Deep venous thrombosis and gastrointestinal prophylaxis as per the order sheet. 2. Reconcile home medicines. 3. Tobacco abuse. Nicotrol patches. 4. Follow up on the pending labs. 5. Unobstructed urinary retention, stage III, InterStim placement by Dr. Cerrato and follow up. cc: Valerio Venegas MD
[2017-07-15] MEDS: XALATAN 0.005% OPH SOLN BOTH EYES SCH (22:08)
[2017-07-15] MEDS: LEVAQUIN 500 MG/D5W 500 MG/100 ML IVPB IV SCH (22:08)
[2017-07-15] MEDS: TRUSOPT 2% OPH SOLN BOTH EYES SCH (22:09)
[2017-07-15] MEDS: ALPHAGAN P 0.1% OPHTH SOLN BOTH EYES SCH (22:09)
[2017-07-15] MEDS: FLEXERIL PO PRN (23:11)
[2017-07-16] MEDS: HUMALOG SUBQ SCH ×5 (04:32→21:35)
[2017-07-16] MEDS: ZOSYN 3.375 GM in NS 50 ML IV SCH ×4 (04:41→22:49)
[2017-07-16] MEDS: SOLU-MEDROL IV SCH ×4 (04:41→21:31)
[2017-07-16] MEDS ORDERED: ULTRAM PO ONE (04:50)
[2017-07-16] MEDS: PLETAL PO SCH ×2 (08:48→21:31)
[2017-07-16] MEDS: LOPID PO SCH ×2 (08:48→21:32)
[2017-07-16] MEDS: TRUSOPT 2% OPH SOLN BOTH EYES SCH ×2 (08:48→21:28)
[2017-07-16] MEDS: NICODERM PATCH TD SCH (08:48)
[2017-07-16] MEDS: ASPIRIN EC PO SCH (08:49)
[2017-07-16] MEDS: PRAVACHOL PO SCH (08:49)
[2017-07-16] MEDS: GLUCOTROL PO SCH (08:49)
[2017-07-16] MEDS: THERA M PLUS PO SCH (08:49)
[2017-07-16] MEDS: NEURONTIN PO SCH ×2 (08:49→21:32)
[2017-07-16] MEDS: FLEXERIL PO PRN (08:49)
[2017-07-16] MEDS: PLAVIX PO SCH (08:49)
[2017-07-16] MEDS: ALPHAGAN P 0.1% OPHTH SOLN BOTH EYES SCH ×2 (08:50→21:28)
[2017-07-16] MEDS: SINGULAIR PO SCH (08:50)
[2017-07-16] MEDS: XALATAN 0.005% OPH SOLN BOTH EYES SCH ×2 (08:50→21:28)
--- NOTE | 2017-07-16 09:46 | Diag Imaging Result Doc PS360 ---
EXAM: CT THORAX W/O CONTRAST HISTORY: lung mass TECHNIQUE: CT chest without contrast. Dose reduction protocol. COMPARISON: None. FINDINGS: Sternal wires are present. The heart is not enlarged. There are prominent atherosclerotic calcifications. No pleural effusions. There are small calcified mediastinal and hilar nodes. No enlarged lymph nodes. There is scarring or atelectasis in the left lung base. No consolidation. No bronchiectasis. Minimal scarring is found medially in the right middle lobe. There is a calcified granuloma superiorly in the left lower lobe. I do not identify a lung mass. Limited images through the upper abdomen reveal a cholecystectomy. There is also nonobstructing left renal stone IMPRESSION: 1.There is evidence of a prior granulomatous infection. 2.Prominent atherosclerosis. 3.Scarring or atelectasis in the left lower lobe and right middle lobe. Electronically signed by Mario Meadows 07/16/2017 9:44 AM
--- NOTE | 2017-07-16 10:38 | Diag Imaging Result Doc PS360 ---
EXAM: CHEST-2 VIEWS HISTORY: hypoxia TECHNIQUE: Two views COMPARISON: 02/20/2017 FINDINGS: The lungs are hyper expanded. The heart is not enlarged. Sternal wires are present. The vessels are not distended. There are no infiltrates. No pleural effusions. IMPRESSION: Stable chest. Electronically signed by Mario Meadows 07/16/2017 10:36 AM
[2017-07-16] MEDS: PATIENT'S OWN MED PO SCH (11:50)
[2017-07-16] MEDS ORDERED: FLUZONE QUAD 2017-2018 SYRINGE IM ONE (11:53)
[2017-07-16] MEDS: NS 1,000 ML IV SCH (16:13)
[2017-07-16] MEDS: BREO ELLIPTA 100/25 MCG INH INH SCH (16:49)
[2017-07-16] MEDS ORDERED: DUONEB (A & A) INH PRN ×2 (18:10→19:00)
[2017-07-16] MEDS ORDERED: DUONEB (A & A) INH SCH (18:11)
--- NOTE | 2017-07-16 20:39 | PROGRESS NOTE ---
DATE: 07/16/2017 SUBJECTIVE: The patient is a little better with withdrawal from the Ultracet and smoking. Started on Nicotrol patch. REVIEW OF SYSTEMS: None reported. OBJECTIVE: Vital Signs: Afebrile, stable. HEENT Examination: Within normal limits. Neck: Supple. No lymphadenopathy. Lungs: Marked wheezing bilaterally. Heart: Sounds are regular. Abdomen: Belly is soft, nontender. Good bowel sounds. Neurologic: No neurological deficits. LAB: ProBNP is normal. ASSESSMENT AND PLAN: 1. Acute chronic obstructive pulmonary disease exacerbation with bronchopneumonia on the right side persistent. We will get a CT of the chest. 2. Tobacco abuse. Quit smoking. 3. Incontinence of urine better after InterStim. 4. Diabetes control on sliding scale. 5. DVT / GI prophylaxis. As per order sheet. Continue present medical therapy. LEVEL OF DOCUMENTATION: 25 minutes. cc: Valerio Venegas MD
[2017-07-16] MEDS: DUONEB (A & A) INH SCH ×2 (21:05→21:11)
[2017-07-16] MEDS: LEVAQUIN 500 MG/D5W 500 MG/100 ML IVPB IV SCH (21:28)
[2017-07-16] MEDS: SODIUM CHLORIDE 0.9% INJ SCH (21:31)
[2017-07-16] MEDS: ULTRACET 37.5MG/325MG PO SCH (21:31)
[2017-07-16] MEDS: PROTONIX IV SCH (21:31)
[2017-07-16] MEDS: LOVENOX SUBQ SCH (21:31)
[2017-07-17] MEDS: DUONEB (A & A) INH SCH ×4 (03:00→22:20)
[2017-07-17] MEDS: ZOSYN 3.375 GM in NS 50 ML IV SCH ×4 (05:17→22:32)
[2017-07-17] MEDS: SOLU-MEDROL IV SCH ×3 (05:17→20:59)
[2017-07-17] MEDS: HUMALOG SUBQ SCH ×4 (06:44→20:59)
[2017-07-17] MEDS: BREO ELLIPTA 100/25 MCG INH INH SCH (09:31)
--- NOTE | 2017-07-17 09:48 | PROGRESS NOTE ---
DATE: 07/17/2017 SUBJECTIVE: The patient is doing better and decreased cough and congestion. REVIEW OF SYSTEMS: None reported. PHYSICAL EXAMINATION: Vital Signs: Afebrile, stable. HEENT: Within normal limits. Neck: Supple. Chest: Is wheezing mostly on the right side. Heart: Sounds are regular. Abdomen: Belly is soft, nontender. Decreased pulses in the right foot. No obvious neurological deficits. Chest CT is evidence of prior granulomatosis infection, prominent liver sclerosis and scarring and atelectasis in the left lower lobe and right middle lobe. ASSESSMENT AND PLAN: 1. Acute chronic obstructive pulmonary disease exacerbation. Continue present medical therapy. 2. Tobacco abuse. Quit smoking. 3. Abnormal x-ray on the right side due to scarring from the previous. On the CT no endobronchial lesions noted. Results discussed with the patient. 4. Plan is discontinue IV fluids. Continue present medical therapy. Check the labs in the morning. Level of documentation 25 minutes. cc: Valerio Venegas MD
[2017-07-17] MEDS: SINGULAIR PO SCH (10:23)
[2017-07-17] MEDS: GLUCOTROL PO SCH (10:23)
[2017-07-17] MEDS: THERA M PLUS PO SCH (10:23)
[2017-07-17] MEDS: NEURONTIN PO SCH ×2 (10:24→20:59)
[2017-07-17] MEDS: PLETAL PO SCH ×2 (10:24→20:58)
[2017-07-17] MEDS: PRAVACHOL PO SCH (10:25)
[2017-07-17] MEDS: ASPIRIN EC PO SCH (10:25)
[2017-07-17] MEDS: PLAVIX PO SCH (10:25)
[2017-07-17] MEDS: LOPID PO SCH ×2 (10:25→20:59)
[2017-07-17] MEDS: TRUSOPT 2% OPH SOLN BOTH EYES SCH ×2 (10:27→21:00)
[2017-07-17] MEDS: XALATAN 0.005% OPH SOLN BOTH EYES SCH ×2 (10:28→21:01)
[2017-07-17] MEDS: ALPHAGAN P 0.1% OPHTH SOLN BOTH EYES SCH ×2 (10:28→21:01)
[2017-07-17] MEDS: PATIENT'S OWN MED PO SCH (10:30)
[2017-07-17] MEDS: NICODERM PATCH TD SCH (10:32)
[2017-07-17] MEDS: LEVAQUIN 500 MG/D5W 500 MG/100 ML IVPB IV SCH (20:58)
[2017-07-17] MEDS: ULTRACET 37.5MG/325MG PO SCH (20:59)
[2017-07-17] MEDS: LOVENOX SUBQ SCH (20:59)
[2017-07-17] MEDS: PROTONIX IV SCH (20:59)
[2017-07-17] MEDS ORDERED: HALL'S COUGH LOZENGE MT PRN (23:18)
[2017-07-18] MEDS: DUONEB (A & A) INH SCH ×4 (03:10→22:22)
[2017-07-18] MEDS: SOLU-MEDROL IV SCH ×3 (05:41→20:17)
[2017-07-18] MEDS: ZOSYN 3.375 GM in NS 50 ML IV SCH ×4 (05:41→23:16)
[2017-07-18 05:43] LABS: HEMATOCRIT 38.6 % (37.0-47.0); HEMOGLOBIN 12.3 g/dL (12.0-16.0); IMM GRAN# 0.02 X1000 (0.0-0.04); IMM GRAN% 0.2 % (0.0-0.5); LYMPH# 0.64 X1000 (1.2-3.4); LYMPH% 6.9 % (20.5-51.1); MANUAL DIFF NEEDED? YES; MCH 30.8 PG (27-31); MCHC 31.9 g/dL (33-37); MCV 96.7 FL (81-99); MONO# 0.38 X1000 (0.11-0.59); MONO% 4.1 % (1.7-9.3); MPV 12.2 FL (7.4-10.4); NEUT% 88.8 % (42.2-75.2); PLT 166 X1000 (130-400); RBC 3.99 XMIL (4.2-5.4)
[2017-07-18 05:53] LABS: CALCIUM 9.3 mg/dL (8.8-10.2); POTASSIUM 4.9 mmol/L (3.5-5.1)
[2017-07-18] MEDS: HUMALOG SUBQ SCH ×4 (06:27→20:19)
[2017-07-18 06:53] LABS: BANDS 6 % (0-1); LYMPHS 10 % (21-51); MONO 6 % (1-9)
[2017-07-18] MEDS: BREO ELLIPTA 100/25 MCG INH INH SCH (09:22)
[2017-07-18] MEDS: NICODERM PATCH TD SCH (09:54)
[2017-07-18] MEDS: SINGULAIR PO SCH (09:54)
[2017-07-18] MEDS: NEURONTIN PO SCH ×2 (09:54→20:17)
[2017-07-18] MEDS: PRAVACHOL PO SCH (09:54)
[2017-07-18] MEDS: PLETAL PO SCH ×2 (09:54→20:17)
[2017-07-18] MEDS: PLAVIX PO SCH (09:54)
[2017-07-18] MEDS: GLUCOTROL PO SCH (09:55)
[2017-07-18] MEDS: ASPIRIN EC PO SCH (09:55)
[2017-07-18] MEDS: LOPID PO SCH ×2 (09:55→20:17)
[2017-07-18] MEDS: THERA M PLUS PO SCH (09:55)
[2017-07-18] MEDS: XALATAN 0.005% OPH SOLN BOTH EYES SCH ×2 (09:59→20:18)
[2017-07-18] MEDS: TRUSOPT 2% OPH SOLN BOTH EYES SCH ×2 (09:59→20:18)
[2017-07-18] MEDS: ALPHAGAN P 0.1% OPHTH SOLN BOTH EYES SCH ×2 (10:00→20:18)
--- NOTE | 2017-07-18 10:37 | PROGRESS NOTE ---
DATE: 07/18/2017 SUBJECTIVE: The patient says she is feeling a little bit better. She has a little bit of a sore throat. She has got some cough drops for that. OBJECTIVE: Vital Signs: Blood pressure is 130/68, respirations 20, pulse 82, temperature 97.6 degrees Fahrenheit. Lab is stable. HEENT: She is normocephalic. EOMs intact. PERRLA. Throat clear. Lungs: A few scattered rales. Heart: Regular rate rhythm without murmurs, gallops, or friction rubs. Abdomen: Soft. Active bowel sounds. No organomegaly or tenderness. ASSESSMENT: Exacerbation of chronic obstructive pulmonary disease. PLAN: Continue care. Possibly the oxygen that she is using intermittently has gotten her throat a little sore. She is on antibiotics. I do not see any thrush. Continue care. cc: MD Valerio Weller Jr, MD
[2017-07-18] MEDS: PATIENT'S OWN MED PO SCH (17:30)
[2017-07-18] MEDS: ULTRACET 37.5MG/325MG PO SCH (20:17)
[2017-07-18] MEDS: PROTONIX IV SCH (20:17)
[2017-07-18] MEDS: LEVAQUIN 500 MG/D5W 500 MG/100 ML IVPB IV SCH (20:17)
[2017-07-18] MEDS: LOVENOX SUBQ SCH (20:19)
[2017-07-19] MEDS: DUONEB (A & A) INH SCH ×4 (03:23→20:13)
[2017-07-19] MEDS: ZOSYN 3.375 GM in NS 50 ML IV SCH (04:15)
[2017-07-19] MEDS: SOLU-MEDROL IV SCH ×3 (04:15→21:56)
[2017-07-19] MEDS: HUMALOG SUBQ SCH ×3 (06:17→16:23)
[2017-07-19] MEDS: BREO ELLIPTA 100/25 MCG INH INH SCH ×2 (07:53→17:17)
[2017-07-19] MEDS: LOPID PO SCH ×2 (08:13→21:55)
[2017-07-19] MEDS: TRUSOPT 2% OPH SOLN BOTH EYES SCH ×2 (08:13→21:56)
[2017-07-19] MEDS: THERA M PLUS PO SCH (08:13)
[2017-07-19] MEDS: FLEXERIL PO PRN (08:13)
[2017-07-19] MEDS: PLAVIX PO SCH (08:13)
[2017-07-19] MEDS: SINGULAIR PO SCH (08:13)
[2017-07-19] MEDS: GLUCOTROL PO SCH (08:13)
[2017-07-19] MEDS: ASPIRIN EC PO SCH (08:13)
[2017-07-19] MEDS: PLETAL PO SCH ×2 (08:13→21:55)
[2017-07-19] MEDS: NICODERM PATCH TD SCH (08:13)
[2017-07-19] MEDS: PRAVACHOL PO SCH (08:13)
[2017-07-19] MEDS: XALATAN 0.005% OPH SOLN BOTH EYES SCH ×2 (08:14→21:56)
[2017-07-19] MEDS: ALPHAGAN P 0.1% OPHTH SOLN BOTH EYES SCH ×2 (08:14→21:56)
[2017-07-19] MEDS: PATIENT'S OWN MED PO SCH (08:15)
[2017-07-19] MEDS: NEURONTIN PO SCH ×2 (08:26→21:55)
--- NOTE | 2017-07-19 21:37 | PROGRESS NOTE ---
DATE: 07/19/2017 SUBJECTIVE: Patient is doing very well. Decreased wheezing. Tried to stop smoking. OBJECTIVE: Vital signs: On examination temperature is 97 degrees, pulse is 70, blood pressure 130/70, I's and O's even HEENT: Exam within normal limits. Neck: Supple. Chest: Bilateral air entry decreased, wheezing. Heart: Sounds are regular. Belly: Soft, nontender. Good bowel sounds. ASSESSMENT AND PLAN: 1. Acute chronic obstructive pulmonary disease exacerbation improving and plan is continue the present medical therapy. 2. Tobacco abuse. Nicotrol patches. 3. Chronic renal failure stable. 4. Neurogenic bladder status post InterStim placement. 5. Right leg pain with decreased pulses. Will check the arterial flow studies today and continue present medical therapy. LEVEL OF DOCUMENTATION: 25 minutes. Hopefully she will be discharged in the morning. cc: Valerio Venegas MD
[2017-07-19] MEDS: LEVAQUIN 500 MG/D5W 500 MG/100 ML IVPB IV SCH (21:55)
[2017-07-19] MEDS: LOVENOX SUBQ SCH (21:55)
[2017-07-19] MEDS: PROTONIX IV SCH (21:56)
[2017-07-20] MEDS: ULTRACET 37.5MG/325MG PO SCH (04:42)
[2017-07-20] MEDS: HUMALOG SUBQ SCH ×2 (04:43→06:05)
[2017-07-20] MEDS: DUONEB (A & A) INH SCH ×2 (04:55→09:16)
[2017-07-20] MEDS: SOLU-MEDROL IV SCH (06:17)
[2017-07-20] MEDS: TRUSOPT 2% OPH SOLN BOTH EYES SCH (08:25)
[2017-07-20] MEDS: NICODERM PATCH TD SCH (08:26)
[2017-07-20] MEDS: XALATAN 0.005% OPH SOLN BOTH EYES SCH (08:26)
[2017-07-20] MEDS: ALPHAGAN P 0.1% OPHTH SOLN BOTH EYES SCH (08:26)
[2017-07-20] MEDS: THERA M PLUS PO SCH (08:27)
[2017-07-20] MEDS: PLETAL PO SCH (08:27)
[2017-07-20] MEDS: NEURONTIN PO SCH (08:27)
[2017-07-20] MEDS: LOPID PO SCH (08:27)
[2017-07-20] MEDS: ASPIRIN EC PO SCH (08:27)
[2017-07-20] MEDS: PLAVIX PO SCH (08:27)
[2017-07-20] MEDS: GLUCOTROL PO SCH (08:27)
[2017-07-20] MEDS: SINGULAIR PO SCH (08:28)
[2017-07-20] MEDS: PRAVACHOL PO SCH (08:28)
[2017-07-20] MEDS: PATIENT'S OWN MED PO SCH (08:28)
[2017-07-20 08:39] VITALS: BP 156/79
[2017-07-20] MEDS ORDERED: PREVNAR 13 IM ONE (08:46)
[2017-07-20] MEDS: BREO ELLIPTA 100/25 MCG INH INH SCH (09:16)
--- NOTE | 2017-07-21 05:17 | DISCHARGE SUMMARY ---
ADMISSION DATE: 07/15/2017 DISCHARGE DATE: 07/20/2017 DISCHARGING DIAGNOSIS: Acute COPD exacerbation with bronchopneumonia. SECONDARY DIAGNOSES: 1. Neurogenic bladder status post InterStim placement. 2. Chronic kidney disease and creatinine 1.8. 3. COPD. 4. Ongoing tobacco abuse. 5. Hyperlipidemia. 6. Glaucoma. 7. Gout. 8. Diverticulosis. 9. CAD status post bypass surgery. 10. Acid reflux disease. 11. Peripheral vascular disease. 12. History of restless legs syndrome. BRIEF HISTORY: Please see the H and P that was done on 07/15/2017. In brief, she is a 77-year- old white female ongoing tobacco abuse admitted to the hospital with cough, shortness of breath, and wheezing crackles in the right base. Chest x-ray showed possible pneumonia on the right side. HOSPITAL COURSE: With recurrent infections in the right lower lobe, CT scan of the thorax obtained. There were no endobronchial lesions noted. Pulmonary function tests consistent with COPD changes. The patient was advised to quit smoking. She was given oxygen, IV antibiotics, and bronchodilators. Further workup, the patient is much better. She has complaints of right foot discoloration. Arterial flow studies was obtained. It is consistent with small vessel disease. At the time of discharge, patient is better. LABORATORY: CBC: White cell count 9.3, hematocrit 38, platelet 166,000. SMA 7, sodium 143, potassium 4.9, chloride 105, BUN 38, creatinine 1.8. Glucose 157. Calcium 9.3. ABG pH is 7.42, pCO2 42, PO2 58. Carboxyhemoglobin is 4.4. The chest CT reported prominent prior granulomatosis infection, prominent atherosclerosis, scarring and atelectasis in the right middle lobe and the left lower lobe. DISCHARGE INSTRUCTIONS: 1. Patient was given nicotine cessation programs. 2. Flexeril 10 mg daily. 3. Alphagan 1 drop both eyes b.i.d. 4. Pravachol 40 mg daily. 5. Xalatan 1 drop in both eyes b.i.d. 6. Trusopt 2 drops both eyes b.i.d. 7. Singulair 10 mg daily, 8. Prefest 1 tablet daily. 9. Prilosec 40 daily. 10. Lasix 20 daily. 11. Ultracet 1 tablet at bedtime. 12. Glipizide 5 mg daily. 13. Multivitamin 1 tablet daily. 14. Pletal 50 p.o. b.i.d. 15. Plavix 75 daily. 16. Gabapentin 200 at bedtime 100 in the morning. 17. Aspirin 81 daily. 18. Gemfibrozil 600 p.o. b.i.d. 19. Breo 1 puff daily. 20. Medrol Dosepak. 21. Albuterol and Atrovent nebulizers as directed. 22. Nicotine cessation program. 23. Initiate standing vaccination protocol. 24. We will administer flu vaccine next week in the office. 25. Follow up in my office in 10 days. cc: MD Dr. Blossom Melvin
--- NOTE | 2017-07-22 15:58 | VASCULAR LAB ---
PROCEDURE NAME: Arterial Bilateral Legs - 07/19/2017 DEMOGRAPHIC: A 77-year-old. INDICATIONS: She has had a history of bilateral femoral arterial stents. She has cold toes bilaterally. FINDINGS: Systolic brachial blood pressure on the right is 132 mmHg, on the left 137 mmHg. Right high thigh 163 mmHg, left high thigh 156 mmHg. Right low thigh 166 mmHg, left low thigh 151 mmHg. Right calf 159 mmHg, left calf 155 mmHg. Right ankle 155 mmHg, left ankle 139 mmHg. There is pulsatile flow on both feet. There is no pulsatile flow in the right great toe. There is diminished pulsatile flow in the left great toe. There is diminished pulse wave forms in all toes on the right. They are also diminished on all toes on the left. INTERPRETATION: 1. There is good arterial flow, with normal pulse waveforms to the ankles bilaterally, status post vascular intervention, femoral arteries bilaterally. 2. She has significant small-vessel disease involving the distal part of her foot and toes, with diminished or absent pulse waveforms, indicating small-vessel disease of the distal foot. cc: MD Valerio Mcwilliams MD
== END 2017-07-20 11:35 | disposition home or self-care (01) ==
LOC: DIRADM 12:09 → 4N 13:56
PROVIDERS: ADMIT Internal Medicine; ATTEND Internal Medicine

== ENCOUNTER 2019-02-15 17:23 | Inpatient (IN) ==
[2019-02-15] MEDS: NS 1,000 ML IV SCH (18:27)
[2019-02-15] MEDS: LEVAQUIN 500 MG/D5W 500 MG/100 ML IVPB IV SCH (18:27)
[2019-02-15] MEDS: DUONEB (A & A) INH SCH ×2 (19:30→23:30)
--- NOTE | 2019-02-15 19:57 | HISTORY AND PHYSICAL ---
CHIEF COMPLAINT: Shortness of breath, cough and wheezing for the last 1 week. HISTORY OF PRESENT ILLNESS: She is a 76-year-old, white female with a known history of COPD, presented to our clinic with the above symptoms. No chest pain. No PND. No orthopnea. She is markedly wheezing after treatment. Chest x-ray: Chronic COPD changes. Admitted to the hospital for COPD exacerbation. PAST MEDICAL HISTORY: 1. COPD. 2. Type 2 diabetes. 3. Chronic kidney disease. Creatinine 1.6. 4. Hyperlipidemia. 5. Glaucoma. 6. Gout. 7. Diverticulosis. 8. Coronary artery disease. 9. History of acid reflux disease. 10. Restless legs syndrome. 11. Peripheral vascular disease. PAST SURGICAL HISTORY: Achilles tendon repair, bypass surgery, right benign breast biopsy, bilateral cataracts, left carotid endarterectomy, bilateral iliac stents, appendectomy, cholecystectomy, hysterectomy. ALLERGIES: Reported to diltiazem. SOCIAL HISTORY: , no children. Lives in [place]. Still smoking. Retired. No alcohol. FAMILY HISTORY: Father of [place] at 71. Mom of kidney cancer at 75. HEALTH MAINTENANCE: Flu vaccine 2017, shingles 2011. Tetanus 06/2014. Mammography 2017. Colonoscopy 2013. MEDICATIONS: Flexeril 10 mg at bedtime. Alphagan 1 drop both eyes b.i.d., pravastatin 40 daily. Xalatan 1 drop both eyes b.i.d., Trusopt 2 drops both eyes b.i.d., Singulair 10 daily, Prefest 1 tablet daily, Prilosec 40 daily. Tramadol with acetaminophen 1 tab at bedtime. Glipizide 5 mg daily, multivitamin 1 tablet daily, Pletal 50 p.o. b.i.d., Plavix 75 daily, gabapentin 300 p.o. b.i.d., aspirin 81 mg daily, Lopid 600 p.o. b.i.d., Breo 1 puff daily, nebulizers q.6, vitamin D3 at 5000 units daily, Lasix 20 daily. REVIEW OF SYSTEMS: HEENT: No headache. No vision problem. No earache. No sore throat. Neck: No goiter. No lymphadenopathy. No bruit. Cardiopulmonary: No chest pain, cough, shortness of breath and wheezing. GI: No nausea, vomiting, abdominal pain. Cramps in the legs. : No history of hesitancy, frequency, dysuria. Neurological: No neurological symptoms, dizziness or vertigo. No seizures. PHYSICAL EXAMINATION: VITAL SIGNS: Temperature is 98, pulse 94, blood pressure 144/66. 5 feet 2 inches, 147 pounds. HEENT: Atraumatic, normocephalic. Pupils equal, react to light. TMs are normal. Nose and throat congested. NECK: Supple. No lymphadenopathy. JVD is not elevated. CHEST: Markedly wheezing. HEART: Sounds are very distant. ABDOMEN: Belly is soft, nontender. Good bowel sounds. EXTREMITIES: No peripheral edema, cyanosis. NEUROLOGIC: No obvious neurological deficits. DIAGNOSTICS: Chest x-ray in my office, COPD changes. Rest of the labs are pending. EKG was pending. ASSESSMENT AND PLAN: An 78-year-old, white female, admitted to the hospital for: 1. Acute chronic obstructive pulmonary disease exacerbation. Ongoing smoking. Plan of care is Nicotrol patch, nicotine cessation programs, oxygen as needed, bronchodilators, IV steroids, IV Levaquin. 2. Deep vein thrombosis/gastrointestinal prophylaxis. As per order sheet. 3. Type 2 diabetes. Diabetic diet. Sliding scale with insulin coverage. 4. Reconcile home medicines. 5. Initiate vaccination protocol. Follow up on the pending labs. Discussed with the family at the bedside. cc: Valerio Venegas MD
[2019-02-15] MEDS ORDERED: ULTRACET 37.5MG/325MG PO SCH (21:00)
[2019-02-15] MEDS: ULTRACET 37.5MG/325MG PO SCH (21:14)
[2019-02-15] MEDS: PLETAL PO SCH (21:14)
[2019-02-15] MEDS: NEURONTIN PO SCH (21:14)
[2019-02-15] MEDS: LOPID PO SCH (21:14)
[2019-02-15] MEDS: XALATAN 0.005% OPH SOLN BOTH EYES SCH (21:15)
[2019-02-15] MEDS: TRUSOPT 2% OPH SOLN BOTH EYES SCH (21:16)
[2019-02-15] MEDS: LOVENOX SUBQ SCH (21:18)
[2019-02-15] MEDS: SOLU-MEDROL IV SCH (21:18)
[2019-02-15] MEDS: ALPHAGAN P 0.1% OPHTH SOLN BOTH EYES SCH (21:19)
[2019-02-15] MEDS: HUMULIN R SUBQ SCH (21:19)
[2019-02-15 22:10] LABS: URINE SOURCE CLEAN CATCH
[2019-02-15 22:27] LABS: BILIRUBIN URINE NEGATIVE (NEGATIVE); BLOOD URINE NEGATIVE (NEGATIVE); COLOR YELLOW; GLUCOSE URINE NEGATIVE (NEGATIVE); KETONE URINE NEGATIVE (NEGATIVE); LEUKOCYTES URINE NEGATIVE (NEGATIVE); NITRITE URINE NEGATIVE (NEGATIVE); PROTEIN URINE 70 mg/dL (NEGATIVE); SP GRAVITY URINE 1.011; TURBIDITY URINE CLEAR (CLEAR); UROBILINOGEN URINE NORMAL (NORMAL)
[2019-02-15 22:31] LABS: UR EPITHELIAL CELLS <10 /HPF (<10); URINE BACTERIA 1+ /HPF; URINE RBC <10 /HPF (<10); URINE WBC <10 /HPF (<10)
[2019-02-16] MEDS: DUONEB (A & A) INH SCH ×6 (03:30→23:15)
[2019-02-16] MEDS: SOLU-MEDROL IV SCH ×3 (04:35→18:56)
[2019-02-16 05:38] LABS: ALLEN TEST YES; BLOOD TYPE ARTERIAL; HCO3-(ACT) 24.1 mmoll (20.0-26.0); METHB 0.1 % (0.0-1.5); O2(CT) 15.8 mL/dL (15.0-23.0); PCO2(98.6) 48 mmHg (35-45); PO2(98.6) 96 mmHg (60-100); SAMPLE BLOOD; SAO2 96.3 % (95.0-100.0); THB 11.7 g/dL (11.5-17.4); pH(98.6) 7.33 (7.35-7.45)
[2019-02-16 05:39] LABS: MODALITY CANNULA
[2019-02-16] MEDS: HUMULIN R SUBQ SCH ×4 (06:14→20:11)
--- NOTE | 2019-02-16 07:31 | EKG Report ---
Test Performed on : 02/15/2019 8:17:56 PM Test Reason : chest pain Blood Pressure : / mmHG Vent. Rate : 094 BPM Atrial Rate : 094 BPM P-R Int : 234 ms QRS Dur : 086 ms QT Int : 390 ms P-R-T Axes : 069 074 062 degrees QTc Int : 487 ms Sinus rhythm. with 1st degree AV block. Possible Left atrial enlargement Borderline ECG When compared with ECG of 25-SEP-2018 17:13, No significant change was found Confirmed by Glen ELLSWORTH, Michael Linton ([id number]) on 02/17/2019 10:53:19 AM
[2019-02-16] MEDS: BREO ELLIPTA 100/25 MCG INH INH SCH (07:53)
[2019-02-16] MEDS: PLETAL PO SCH ×2 (08:00→20:00)
[2019-02-16] MEDS: LOPID PO SCH ×2 (08:00→20:00)
[2019-02-16] MEDS: GLUCOTROL PO SCH (08:00)
[2019-02-16] MEDS: PLAVIX PO SCH (08:00)
[2019-02-16] MEDS: VITAMIN D PO SCH (08:00)
[2019-02-16] MEDS: THERA M PLUS PO SCH (08:00)
[2019-02-16] MEDS: PRAVACHOL PO SCH (08:00)
[2019-02-16] MEDS: PRILOSEC PO SCH (08:00)
[2019-02-16] MEDS: NEURONTIN PO SCH ×2 (08:01→20:00)
[2019-02-16] MEDS: SINGULAIR PO SCH (08:01)
[2019-02-16] MEDS: LASIX PO SCH (08:01)
[2019-02-16] MEDS: ASPIRIN EC PO SCH (08:01)
[2019-02-16] MEDS: NICODERM PATCH TD PRN (08:04)
[2019-02-16] MEDS: XALATAN 0.005% OPH SOLN BOTH EYES SCH ×2 (08:07→20:01)
[2019-02-16] MEDS: TRUSOPT 2% OPH SOLN BOTH EYES SCH ×2 (08:07→20:01)
[2019-02-16] MEDS: ALPHAGAN P 0.1% OPHTH SOLN BOTH EYES SCH ×2 (08:10→20:00)
[2019-02-16 08:11] LABS: HEMATOCRIT 36.9 % (37.0-47.0); HEMOGLOBIN 11.5 g/dL (12.0-16.0); MCH 26.9 PG (27-31); MCHC 31.2 g/dL (33-37); MCV 86.4 FL (81-99); MPV 11.5 FL (7.4-10.4); NEUT% 86.7 % (42.2-75.2); PLT 224 X1000 (130-400); RBC 4.27 XMIL (4.2-5.4); RDW 14.9 % (11.5-14.5); WBC 2.94 X1000 (4.8-10.8)
[2019-02-16] MEDS: PATIENT'S OWN MED PO SCH (08:11)
[2019-02-16 08:12] LABS: LYMPH# 0.35 X1000 (1.2-3.4); LYMPH% 11.9 % (20.5-51.1); MONO# 0.04 X1000 (0.11-0.59); MONO% 1.4 % (1.7-9.3); NEUT# 2.55 X1000 (1.4-6.5)
[2019-02-16] MEDS: NS 1,000 ML IV SCH ×2 (08:12→22:49)
[2019-02-16 08:16] LABS: CALCIUM 8.8 mg/dL (8.8-10.2); CREATININE 1.5 mg/dL (0.5-0.9); MAGNESIUM 2.1 mg/dL (1.5-2.7); POTASSIUM 4.3 mmol/L (3.5-5.1)
[2019-02-16 09:03] LABS: LYMPHS 11 % (21-51); MONO 1 % (1-9); SEGS 88 % (42-75)
[2019-02-16 09:04] LABS: LARGE PLATELETS 1+
--- NOTE | 2019-02-16 12:45 | Diag Imaging Result Doc PS360 ---
EXAM: CHEST-2 VIEWS INDICATION: hypoxia TECHNIQUE: 2 views COMPARISON: 09/25/2018 FINDINGS: The lungs are grossly clear. There is no discrete pleural fluid collection or pneumothorax. There are stable CABG changes. There is no cardiomegaly. Central vasculature is unremarkable. There is extensive aortic atherosclerotic calcification. IMPRESSION: Stable chronic changes. No definite acute pathology by plain radiograph. Electronically signed by Mika Curran 02/16/2019 12:43 PM
[2019-02-16] MEDS: LEVAQUIN 500 MG/D5W 500 MG/100 ML IVPB IV SCH (16:22)
--- NOTE | 2019-02-16 19:17 | PROGRESS NOTE ---
DATE: 02/16/2019 SUBJECTIVE: The patient is withdrawing from smoking. Still wheezing. No chest pain or shortness of breath. OBJECTIVE: On exam, temperature is 97 degrees, pulse 95. Vital signs are stable. On 2 L nasal cannula, 95%. HEENT exam within normal limits. Chest is bronchospastic. Expiratory wheezing. Distant heart sounds. Belly is soft, nontender. No new neurological deficits. LABORATORY DATA: CBC: White cell count 2.9, hematocrit 36.9, platelets 224,000. SMA 7: Creatinine is 1.5, glucose 152. Cardiac enzymes are negative. ProBNP 488. ABG: PH is 7.33, pCO2 is 48, pO2 is 96 on 28%. Followup on cardiac enzymes were negative. DIAGNOSTIC DATA: Chest x-ray was stable. EKG showed normal sinus, first-degree AV block, nothing acute. ASSESSMENT AND PLAN: 1. Acute chronic obstructive pulmonary disease exacerbation. Continue on intravenous antibiotics with Levaquin, intravenous steroids. 2. Gastrointestinal prophylaxis with Pepcid. 3. Deep venous thrombosis prophylaxis with Lovenox. 4. Withdrawal from smoking, on nicotine patch. Gentle hydration. Continue home medicines. 5. Diabetes follow up on sliding scale with insulin coverage. 6. Initiate vaccination protocol prior to the discharge. Level of documentation 25 minutes. cc: Valerio Venegas MD
[2019-02-16] MEDS: LOVENOX SUBQ SCH (20:00)
[2019-02-16] MEDS: ULTRACET 37.5MG/325MG PO SCH (22:28)
[2019-02-17] MEDS: SOLU-MEDROL IV SCH ×2 (02:29→11:38)
[2019-02-17] MEDS: FLEXERIL PO PRN ×2 (02:31→20:58)
[2019-02-17] MEDS: DUONEB (A & A) INH SCH ×6 (04:32→22:51)
[2019-02-17] MEDS: HUMULIN R SUBQ SCH ×4 (06:04→20:58)
[2019-02-17] MEDS: BREO ELLIPTA 100/25 MCG INH INH SCH (07:45)
--- NOTE | 2019-02-17 08:01 | Diag Imaging Result Doc PS360 ---
EXAM: CHEST-2 VIEWS 02/17/2019 HISTORY: hypoxia TECHNIQUE: PA and lateral chest COMMENT: There are sternotomy wires. The heart size and primary vascularity are within normal limits. There is some blunting of the right costophrenic angle which is apparently due to atelectasis as this was not present on 02/16/2019. Otherwise, there has been no significant change. IMPRESSION: Minimal atelectasis right lower lobe. Electronically signed by Gonzalez David 02/17/2019 7:59 AM
[2019-02-17 08:44] LABS: POTASSIUM 4.4 mmol/L (3.5-5.1)
[2019-02-17 08:45] LABS: CALCIUM 8.8 mg/dL (8.8-10.2); CREATININE 1.6 mg/dL (0.5-0.9)
[2019-02-17] MEDS: VITAMIN D PO SCH (09:24)
[2019-02-17] MEDS: PLETAL PO SCH ×2 (09:24→20:58)
[2019-02-17] MEDS: NEURONTIN PO SCH ×2 (09:24→20:58)
[2019-02-17] MEDS: PRILOSEC PO SCH (09:24)
[2019-02-17] MEDS: GLUCOTROL PO SCH (09:25)
[2019-02-17] MEDS: PLAVIX PO SCH (09:25)
[2019-02-17] MEDS: LASIX PO SCH (09:25)
[2019-02-17] MEDS: LOPID PO SCH ×2 (09:25→20:58)
[2019-02-17] MEDS: SINGULAIR PO SCH (09:25)
[2019-02-17] MEDS: ALPHAGAN P 0.1% OPHTH SOLN BOTH EYES SCH ×2 (09:25→20:56)
[2019-02-17] MEDS: ASPIRIN EC PO SCH (09:25)
[2019-02-17] MEDS: THERA M PLUS PO SCH (09:25)
[2019-02-17] MEDS: PRAVACHOL PO SCH (09:25)
[2019-02-17] MEDS: XALATAN 0.005% OPH SOLN BOTH EYES SCH ×2 (09:25→20:56)
[2019-02-17] MEDS: TRUSOPT 2% OPH SOLN BOTH EYES SCH ×2 (09:26→20:56)
[2019-02-17] MEDS: PATIENT'S OWN MED PO SCH (09:26)
[2019-02-17] MEDS: NICODERM PATCH TD PRN (14:36)
[2019-02-17] MEDS: NS 1,000 ML IV SCH (16:47)
[2019-02-17] MEDS: LEVAQUIN 500 MG/D5W 500 MG/100 ML IVPB IV SCH (16:48)
[2019-02-17] MEDS ORDERED: MEDROL DOSEPAK PO SCH (17:00)
--- NOTE | 2019-02-17 20:15 | PROGRESS NOTE ---
DATE: 02/17/2019 SUBJECT: The patient is a little better, decreased wheezing and no chest pain. EXAM: Temperature is 97.8 degrees, pulse 84, blood pressure is stable.HEENT: Within normal limits. Neck: Supple. Chest: Clear. Heart: Sounds are regular. Belly: Is soft, nontender. No neurological deficits. INVESTIGATIONS: BUN 35, creatinine 1.6. ASSESSMENT AND PLAN: 1. Acute chronic obstructive pulmonary disease exacerbation stable. Decrease IV steroid. 2. Continue present treatment. Will slowly swap into p.o. medications. If she is stable will discharge in the morning. cc: Valerio Venegas MD
[2019-02-17] MEDS: LOVENOX SUBQ SCH (20:59)
[2019-02-17] MEDS: MEDROL PO SCH (21:03)
[2019-02-18] MEDS: ULTRACET 37.5MG/325MG PO SCH (00:43)
[2019-02-18] MEDS: DUONEB (A & A) INH SCH ×3 (03:22→11:37)
[2019-02-18] MEDS: HUMULIN R SUBQ SCH ×2 (06:12→13:08)
[2019-02-18] MEDS: MEDROL PO SCH ×2 (06:12→08:31)
[2019-02-18] MEDS: BREO ELLIPTA 100/25 MCG INH INH SCH (07:50)
[2019-02-18] MEDS: TRUSOPT 2% OPH SOLN BOTH EYES SCH (08:30)
[2019-02-18] MEDS: ALPHAGAN P 0.1% OPHTH SOLN BOTH EYES SCH (08:30)
[2019-02-18] MEDS: XALATAN 0.005% OPH SOLN BOTH EYES SCH (08:31)
[2019-02-18] MEDS: LOPID PO SCH (08:33)
[2019-02-18] MEDS: LASIX PO SCH (08:33)
[2019-02-18] MEDS: PRILOSEC PO SCH (08:33)
[2019-02-18] MEDS: PLAVIX PO SCH (08:33)
[2019-02-18] MEDS: SINGULAIR PO SCH (08:33)
[2019-02-18] MEDS: PRAVACHOL PO SCH (08:33)
[2019-02-18] MEDS: GLUCOTROL PO SCH (08:34)
[2019-02-18] MEDS: ASPIRIN EC PO SCH (08:34)
[2019-02-18] MEDS: PLETAL PO SCH (08:34)
[2019-02-18] MEDS: NEURONTIN PO SCH (08:34)
[2019-02-18] MEDS: VITAMIN D PO SCH (08:34)
[2019-02-18] MEDS: THERA M PLUS PO SCH (08:34)
[2019-02-18] MEDS: PATIENT'S OWN MED PO SCH (08:37)
[2019-02-18] MEDS ORDERED: LEVAQUIN PO SCH (09:00)
[2019-02-18] MEDS ORDERED: PNEUMOVAX 23 IM ONE (09:01)
[2019-02-18] MEDS ORDERED: PREVNAR 13 IM ONE (09:02)
[2019-02-18 13:17] VITALS: BP 131/54
--- NOTE | 2019-02-22 08:50 | DISCHARGE SUMMARY ---
ADMISSION DATE: 02/16/2019 DISCHARGE DATE: 02/18/2019 DATE OF ADMISSION: 02/16/2019 DATE OF DISCHARGE: 02/18/2019 DISCHARGING DIAGNOSIS: Acute chronic obstructive pulmonary disease exacerbation. SECONDARY DIAGNOSES: 1. Type 2 diabetes. 2. Chronic kidney disease. Creatinine 1.6. 3. Hyperlipidemia. 4. Glaucoma. 5. Gout. 6. Diverticulosis. 7. Coronary artery disease. 8. Acid reflux disease. 9. Restless legs syndrome. 10. Peripheral vascular disease. BRIEF HISTORY: Please see the H and P that was done on 02/15/2019. In brief, she is a 76-year- old white female with known history of COPD, who came in with shortness of breath, cough, and wheezing. The patient is noncompliant. She was markedly wheezing. She was treated 3 times [facility]. She was hospitalized for acute COPD exacerbation. HOSPITAL COURSE: Despite advice, she continues to smoke. Nicotrol patch was given. Patient was given bronchodilators, IV antibiotics, steroids, and IV was infiltrated. At the time of discharge, patient was less wheezing. The patient was again advised not to continue smoking. DIAGNOSTIC STUDIES: CBC: White cell count 2.9, hematocrit 36.9, platelets 224,000. ABG: PH is 7.33, pCO2 of 48, PO2 of 96 on 28%. SMA-7: Sodium 138, potassium 4.4, chloride 104, BUN 35, creatinine 1.6, glucose 134. Cardiac enzymes are negative. ProBNP 488. Urinalysis is clear. Chest x-ray: COPD changes. EKG normal sinus nothing acute. DISCHARGE INSTRUCTIONS: 1. Quit smoking. 2. Pneumococcal vaccine 13 on 02/18/2019. 3. Flexeril 10 mg as needed, pravastatin 40 daily, Singulair 10 daily, Prefest tablet 1 tablet daily, Prilosec 40 mg daily, Ultracet 1 tablet at bedtime, glipizide 5 mg daily, multivitamin 1 tablet daily, Pletal 50 p.o. b.i.d., Plavix 75 daily, gabapentin 300 p.o. b.i.d., aspirin 81 mg daily, Lopid 600 p.o. b.i.d., Breo 1 puff daily, albuterol/Atrovent nebulizers t.i.d. as needed, vitamin D3 of 5000 units daily, Lasix 20 mg daily, Levaquin 500 daily for 7 days, Medrol Dosepak. 4. Continue with the glaucoma drops, which include Alphagan, Xalatan, and Trusopt as directed. 5. Follow up in my office next week. cc: Valerio Venegas MD
== END 2019-02-18 13:25 | disposition home or self-care (01) | DRG 192 ==
LOC: DIRADM → 3N 17:23
PROVIDERS: ADMIT Internal Medicine; ATTEND Internal Medicine
CPT/HCPCS: 71020; 71046; 80048; 81001; 82550; 82805; 82948; 83735; 83880; 84484; 85025; 90670; 93005; 93010; 94640; 94760; 94761; A9270; J1650; J1956; J2930; J7030; J7509; XXXXX

== ENCOUNTER 2019-10-31 10:03 | Inpatient (IN) ==
[2019-10-31] MEDS ORDERED: SODIUM CHLORIDE 0.9% INJ SCH (11:15)
[2019-10-31] MEDS: LOVENOX SUBQ SCH (13:05)
[2019-10-31] MEDS: LEVAQUIN 500 MG/D5W 500 MG/100 ML IVPB IV SCH (13:05)
[2019-10-31] MEDS: SOLU-MEDROL IV SCH ×2 (13:06→23:08)
[2019-10-31 14:34] LABS: BASO# 0.24 X1000 (0.0-0.2); BASO% 3.7 % (0.0-0.8); EOS% 1.5 % (0.0-10.0); HEMATOCRIT 37.9 % (37.0-47.0); HEMOGLOBIN 11.1 g/dL (12.0-16.0); IMM GRAN# 0.02 X1000 (0.0-0.04); IMM GRAN% 0.3 % (0.0-0.5); LYMPH# 1.25 X1000 (1.2-3.4); LYMPH% 19.1 % (20.5-51.1); MCH 24.7 PG (27-31); MCHC 29.3 g/dL (33-37); MCV 84.4 FL (81-99); MONO# 0.73 X1000 (0.11-0.59); MONO% 11.1 % (1.7-9.3); MPV 11.2 FL (7.4-10.4); NEUT# 4.21 X1000 (1.4-6.5); NEUT% 64.3 % (42.2-75.2); PLT 225 X1000 (130-400); RBC 4.49 XMIL (4.2-5.4); RDW 17.6 % (11.5-14.5); WBC 6.55 X1000 (4.8-10.8)
[2019-10-31 14:50] LABS: HEMOGLOBIN A1C 6.3 % (4.8-6.0)
[2019-10-31 14:51] LABS: ALB/GLOB RATIO 1.1; ALBUMIN 3.6 g/dL (3.5-5.0); CALCIUM 9.4 mg/dL (8.8-10.2); CREATININE 1.5 mg/dL (0.5-0.9); TOTAL BILIRUBIN 0.46 mg/dL (0.20-1.00)
[2019-10-31] MEDS: ROCEPHIN 1 GM in NS 50 ML IV SCH (15:09)
[2019-10-31] MEDS: PROTONIX IV SCH (16:00)
[2019-10-31] MEDS: HUMULIN R SUBQ SCH ×2 (18:14→22:51)
[2019-10-31] MEDS: DUONEB (A & A) INH PRN (20:56)
[2019-10-31] MEDS: NICODERM PATCH TD PRN (23:08)
[2019-10-31] MEDS: TESSALON PO PRN (23:08)
[2019-10-31] MEDS: ALPHAGAN P 0.1% OPHTH SOLN BOTH EYES SCH (23:10)
[2019-10-31] MEDS: XALATAN 0.005% OPH SOLN BOTH EYES SCH (23:10)
[2019-10-31] MEDS: NEURONTIN PO SCH (23:10)
[2019-10-31] MEDS: PLETAL PO SCH (23:10)
[2019-10-31] MEDS: TRUSOPT 2% OPH SOLN BOTH EYES SCH (23:11)
--- NOTE | 2019-10-31 23:52 | HISTORY AND PHYSICAL ---
CHIEF COMPLAINT: Shortness of breath, cough and wheezing for the last 1 week. HISTORY OF PRESENT ILLNESS: She is an 79-year-old white female with known history of COPD, came in my office after failure of outpatient treatment. She is markedly wheezing. Both hands are showing cyanosis with Raynaud features and pulse oximetry was 88 percent. Chest x-ray stable and basically admitted to the hospital for acute COPD exacerbation. She denies of any chest pain. History of orthopnea, PND, and swelling of legs, right leg worse than the left side. As a result, a hospital admission was warranted. PAST MEDICAL HISTORY: 1. COPD. 2. Type 2 diabetes. 3. Chronic kidney disease. Creatinine 1.6. 4. Hyperlipidemia. 5. Glaucoma. 6. Gout. 7. Diverticulosis. 8. Coronary artery disease. 9. Acid reflux disease. 10. Restless legs syndrome. 11. Peripheral vascular disease. PAST SURGICAL HISTORY: 1. Achilles tendon repair. 2. Bypass surgery. 3. Right benign breast biopsy. 4. Bilateral cataract surgery. 5. Left carotid endarterectomy. 6. Bilateral iliac stents. 7. Appendectomy. 8. Cholecystectomy. 9. Hysterectomy. ALLERGIES: Reported to [facility]. SOCIAL HISTORY: He is . No children. Lives in [place]. Still smoking. Retired. No alcohol. FAMILY HISTORY: Father of [place] at 71. Mom of kidney cancer at 75. HEALTH MAINTENANCE: Flu vaccine 2018, shingles 2011, tetanus June 2014, colonoscopy 2013. pneumococcal 13 was given 02/18/2019. REVIEW OF SYSTEMS: HEENT: No headache. No vision problem. No earache. No sore throat. Neck: No goiter. No lymphadenopathy. No bruits. Cardiopulmonary: No chest pain, shortness of breath, cough, wheezing, swelling of legs. Gastrointestinal: No nausea, vomiting, abdominal pain. Genitourinary: No history of hesitancy, frequency, dysuria. Neurological: No neurological symptoms or weakness. PHYSICAL EXAMINATION: VITAL SIGNS: Temperature is 97.6 degrees, pulse 97, blood pressure is 142/74, height 5 feet 2 inches, weight 150 pounds. HEENT: Atraumatic, normocephalic. Pupils equal, react to light. TMs are normal. Nose and throat within normal limits. NECK: Supple. No lymphadenopathy. CHEST: Bilateral wheezing, distant heart sounds. ABDOMEN: Belly is soft, obese, nontender. Good bowel sounds. EXTREMITIES: 1+ pedal edema in both legs. NEUROLOGIC: No neurological deficits. INVESTIGATIONS: White cell count 6.5, hematocrit 37.9, platelets 225,000. Sodium 138, potassium 4, chloride 100, BUN 26, creatinine 1.5. Glucose 111. Hemoglobin A1c 6.3. ProBNP 2000. CK 76. Chest x-ray, COPD changes. ASSESSMENT AND PLAN: 1. An 79-year-old white female admitted to the hospital for acute chronic obstructive pulmonary disease exacerbation, failure of outpatient treatment. Plan is bronchodilators, oxygen. IV steroids. Ceftriaxone and Levaquin. 2. Health maintenance: Up-to-date on vaccination. 3. Peripheral arterial disease, on Pletal 50 p.o. b.i.d., Plavix 75 daily. 4. Deep venous thrombosis and gastrointestinal prophylaxis with Lovenox and proton pump inhibitor. 5. Reconcile home medicines. 6. Quit smoking. 7. Symptomatic treatment, Tessalon Perles for cough. 8. Follow up on the laboratory pending database. cc: Valerio Venegas MD
[2019-11-01] MEDS: SOLU-MEDROL IV SCH ×3 (04:36→22:12)
[2019-11-01] MEDS: HUMULIN R SUBQ SCH ×4 (06:10→22:18)
[2019-11-01] MEDS: TRUSOPT 2% OPH SOLN BOTH EYES SCH ×2 (09:09→22:10)
[2019-11-01] MEDS: ALPHAGAN P 0.1% OPHTH SOLN BOTH EYES SCH ×2 (09:09→22:10)
[2019-11-01] MEDS: XALATAN 0.005% OPH SOLN BOTH EYES SCH ×2 (09:09→22:09)
[2019-11-01] MEDS: LASIX IV SCH (09:10)
[2019-11-01] MEDS: PLETAL PO SCH ×2 (09:10→22:11)
[2019-11-01] MEDS: PLAVIX PO SCH (09:11)
[2019-11-01] MEDS: VITAMIN D PO SCH (09:11)
[2019-11-01] MEDS: ASPIRIN EC PO SCH (09:13)
[2019-11-01] MEDS: NEURONTIN PO SCH ×2 (09:13→22:11)
[2019-11-01] MEDS: DUONEB (A & A) INH PRN ×5 (09:24→21:04)
[2019-11-01] MEDS: BREO ELLIPTA 100/25 MCG INH INH SCH (09:25)
[2019-11-01] MEDS: LEVAQUIN 500 MG/D5W 500 MG/100 ML IVPB IV SCH (11:28)
[2019-11-01] MEDS: LOVENOX SUBQ SCH (11:30)
[2019-11-01] MEDS: PROTONIX IV SCH (11:31)
[2019-11-01] MEDS: ROCEPHIN 1 GM in NS 50 ML IV SCH (13:31)
--- NOTE | 2019-11-01 21:59 | PROGRESS NOTE ---
DATE: 11/01/2019 SUBJECT: Finally, patient is sleeping. Some wheezing, shortness of breath, swelling of feet. No chest pain. OBJECTIVE: Vital signs: Temperature is 97.6 degrees, pulse 90, blood pressure is 124/53. Lungs: Mild respiratory distress. Bilateral expiratory wheezing. Heart: Distant heart sounds. Abdomen: Belly is soft, nontender. Extremities: There is 1+ pedal edema in both legs, right worse than the left side. LABS: Noted. ProBNP 2300. Creatinine 1.5. ASSESSMENT AND PLAN: 1. Acute chronic obstructive pulmonary disease exacerbation. 2. Coronary artery disease, status post bypass surgery. 3. Peripheral arterial disease. 4. Chronic kidney disease. 5. Ongoing tobacco abuse. 6. Glaucoma. PLAN OF CARE: 1. Intravenous ceftriaxone. 2. Levaquin. 3. Steroids. 4. Nicotine patch. 5. Deep venous thrombosis and gastrointestinal prophylaxis as per orders. 6. Reconcile home medications. 7. Continue diuresis and will follow up. 8. We will check the SMA 7 in the morning. LEVEL OF DOCUMENTATION: 25 minutes. cc: Valerio Venegas MD
[2019-11-01] MEDS: NICODERM PATCH TD PRN (22:19)
[2019-11-02] MEDS: SOLU-MEDROL IV SCH ×3 (03:11→21:13)
[2019-11-02] MEDS: DUONEB (A & A) INH PRN ×4 (03:48→22:30)
[2019-11-02] MEDS: HUMULIN R SUBQ SCH ×4 (06:31→21:10)
[2019-11-02 08:53] LABS: CALCIUM 9.5 mg/dL (8.8-10.2); CREATININE 1.9 mg/dL (0.5-0.9); POTASSIUM 4.7 mmol/L (3.5-5.1)
[2019-11-02] MEDS: XALATAN 0.005% OPH SOLN BOTH EYES SCH ×2 (09:11→21:16)
[2019-11-02] MEDS: ALPHAGAN P 0.1% OPHTH SOLN BOTH EYES SCH ×2 (09:11→21:15)
[2019-11-02] MEDS: TRUSOPT 2% OPH SOLN BOTH EYES SCH ×2 (09:12→21:15)
[2019-11-02] MEDS: PLETAL PO SCH ×2 (09:12→21:13)
[2019-11-02] MEDS: VITAMIN D PO SCH (09:12)
[2019-11-02] MEDS: NEURONTIN PO SCH ×2 (09:12→21:13)
[2019-11-02] MEDS: LASIX IV SCH (09:12)
[2019-11-02] MEDS: ASPIRIN EC PO SCH (09:13)
[2019-11-02] MEDS: PLAVIX PO SCH (09:13)
[2019-11-02] MEDS: BREO ELLIPTA 100/25 MCG INH INH SCH (09:42)
[2019-11-02] MEDS: PROTONIX IV SCH (12:31)
[2019-11-02] MEDS: LEVAQUIN 500 MG/D5W 500 MG/100 ML IVPB IV SCH (12:31)
[2019-11-02] MEDS: ROCEPHIN 1 GM in NS 50 ML IV SCH (12:31)
[2019-11-02] MEDS: LOVENOX SUBQ SCH (12:32)
[2019-11-02] MEDS: TESSALON PO PRN (21:12)
[2019-11-02] MEDS: NICODERM PATCH TD PRN (21:13)
--- NOTE | 2019-11-02 22:21 | PROGRESS NOTE ---
DATE: 11/02/2019 SUBJECTIVE: The patient is a little better. Still wheezing bilaterally. No other complaints. OBJECTIVE: Temperature is 97.7 degrees, pulse 89, blood pressure 129/66. HEENT exam within normal limits.Chest: Bilateral wheezing. Distant heart sounds. Decreased edema. INVESTIGATION: Creatinine 1.9. ASSESSMENT: 1. Acute chronic obstructive pulmonary disease exacerbation. 2. Chronic kidney disease. 3. Peripheral arterial disease. 4. Coronary artery disease. PLAN: 1. Continue IV Lasix for 3 days. 2. Continue treatment for COPD with IV steroids and antibiotics with ceftriaxone and Levaquin. 3. Quit smoking. 4. Vaccinations up to date. Continue present treatment. Level of documentation 25 minutes. cc: Valeiro Venegas MD
[2019-11-03] MEDS: SOLU-MEDROL IV SCH ×3 (04:46→20:54)
[2019-11-03] MEDS: HUMULIN R SUBQ SCH ×4 (06:55→20:59)
[2019-11-03] MEDS: BREO ELLIPTA 100/25 MCG INH INH SCH (08:16)
[2019-11-03] MEDS: LASIX IV SCH (09:50)
[2019-11-03] MEDS: ALPHAGAN P 0.1% OPHTH SOLN BOTH EYES SCH ×2 (09:50→20:55)
[2019-11-03] MEDS: PLETAL PO SCH ×2 (09:50→20:54)
[2019-11-03] MEDS: TRUSOPT 2% OPH SOLN BOTH EYES SCH ×2 (09:50→20:55)
[2019-11-03] MEDS: ASPIRIN EC PO SCH (09:51)
[2019-11-03] MEDS: PLAVIX PO SCH (09:51)
[2019-11-03] MEDS: VITAMIN D PO SCH (09:51)
[2019-11-03] MEDS: XALATAN 0.005% OPH SOLN BOTH EYES SCH ×2 (09:52→20:54)
[2019-11-03] MEDS: NEURONTIN PO SCH ×2 (09:54→20:54)
[2019-11-03] MEDS: LOVENOX SUBQ SCH (09:55)
[2019-11-03] MEDS: LEVAQUIN 500 MG/D5W 500 MG/100 ML IVPB IV SCH (11:34)
[2019-11-03] MEDS: PROTONIX IV SCH (13:35)
[2019-11-03] MEDS: ROCEPHIN 1 GM in NS 50 ML IV SCH (13:36)
[2019-11-03] MEDS: DUONEB (A & A) INH PRN (21:05)
--- NOTE | 2019-11-03 21:52 | PROGRESS NOTE ---
DATE: 11/03/2019 SUBJECTIVE: The patient is still wheezing, not any better, and she has bleeding from the Lovenox site. OBJECTIVE: Is 97.4 degrees, pulse 93. Vitals are stable.HEENT: Within normal limits. Neck: Supple. Bilateral wheezing. Heart: Distant heart sounds. Belly: Is soft, obese, nontender. Good bowel sounds. ASSESSMENT AND PLAN: 1. Acute chronic obstructive pulmonary disease exacerbation. 2. Chronic tobacco abuse. 3. Glaucoma. 4. CAD. 5. Peripheral arterial disease. 6. Edema is better. We will stop the Lasix tomorrow. Continue present treatment. Decrease the Lovenox to 20 mg daily because of the bleeding. I advised the patient to quit smoking and will follow up. LEVEL OF DOCUMENTATION: 25 minutes. cc: Valerio Veengas MD
[2019-11-04] MEDS: SOLU-MEDROL IV SCH ×3 (04:58→20:54)
[2019-11-04] MEDS: HUMULIN R SUBQ SCH ×4 (06:29→20:56)
[2019-11-04] MEDS: BREO ELLIPTA 100/25 MCG INH INH SCH (08:14)
[2019-11-04] MEDS: LOVENOX SUBQ SCH (09:29)
[2019-11-04] MEDS: TRUSOPT 2% OPH SOLN BOTH EYES SCH ×2 (09:29→20:53)
[2019-11-04] MEDS: ALPHAGAN P 0.1% OPHTH SOLN BOTH EYES SCH ×2 (09:29→20:54)
[2019-11-04] MEDS: XALATAN 0.005% OPH SOLN BOTH EYES SCH ×2 (09:30→20:54)
[2019-11-04] MEDS: PLETAL PO SCH ×2 (09:30→20:54)
[2019-11-04] MEDS: VITAMIN D PO SCH (09:30)
[2019-11-04] MEDS: PLAVIX PO SCH (09:30)
[2019-11-04] MEDS: ASPIRIN EC PO SCH (09:30)
[2019-11-04] MEDS: NEURONTIN PO SCH ×2 (09:30→20:54)
--- NOTE | 2019-11-04 12:12 | PROGRESS NOTE ---
DATE: 11/04/2019 SUBJECTIVE: The patient is a little better. Decreased shortness of breath, cough, and wheezing. Attempted to detox from nicotine, no withdrawals. PHYSICAL EXAMINATION: Vital signs: Temperature is 97 degrees, pulse is 80. Vitals are stable. HEENT: Within normal limits. Lungs: Decreased wheezing. Heart: Sounds are regular. Extremities: Decreased edema. INVESTIGATIONS: None reported. ASSESSMENT: 1. Acute chronic obstructive pulmonary disease. 2. Chronic kidney disease. 3. Peripheral arterial disease. 4. Coronary artery disease. PLAN OF CARE: Continue present treatment. Evaluation for home oxygen. Check the pulse oximetry on room air along with exertion and continue follow-up and decreased prednisone 40 mg IV q.8. LEVEL OF DOCUMENTATION: 25 minutes. cc: Valerio Venegas MD
[2019-11-04] MEDS: LEVAQUIN 500 MG/D5W 500 MG/100 ML IVPB IV SCH (12:33)
[2019-11-04] MEDS: NICODERM PATCH TD PRN (12:33)
[2019-11-04] MEDS: PROTONIX IV SCH (12:33)
[2019-11-04] MEDS: ROCEPHIN 1 GM in NS 50 ML IV SCH (12:33)
[2019-11-04] MEDS: DUONEB (A & A) INH PRN (16:11)
[2019-11-05] MEDS: SOLU-MEDROL IV SCH (05:33)
[2019-11-05] MEDS: HUMULIN R SUBQ SCH ×4 (06:12→21:45)
[2019-11-05] MEDS: BREO ELLIPTA 100/25 MCG INH INH SCH (08:17)
[2019-11-05] MEDS: DUONEB (A & A) INH PRN (08:17)
[2019-11-05] MEDS: PLETAL PO SCH ×2 (10:28→21:45)
[2019-11-05] MEDS: VITAMIN D PO SCH (10:28)
[2019-11-05] MEDS: PLAVIX PO SCH (10:30)
[2019-11-05] MEDS: LOVENOX SUBQ SCH (10:31)
[2019-11-05] MEDS: ASPIRIN EC PO SCH (10:40)
[2019-11-05] MEDS: NEURONTIN PO SCH ×2 (10:40→21:45)
[2019-11-05] MEDS: ALPHAGAN P 0.1% OPHTH SOLN BOTH EYES SCH ×2 (10:40→21:45)
[2019-11-05] MEDS: TRUSOPT 2% OPH SOLN BOTH EYES SCH ×2 (10:41→21:44)
[2019-11-05] MEDS: XALATAN 0.005% OPH SOLN BOTH EYES SCH ×2 (10:41→21:44)
--- NOTE | 2019-11-05 11:19 | PROGRESS NOTE ---
DATE: 11/05/2019 SUBJECTIVE: The patient is a little better. Decreased wheezing. Evaluate the patient for home oxygen after she gets better. I spoke to the nurses. They are going to check pulse oximetry on room air, including exertion. Swelling of the legs is better. PHYSICAL EXAMINATION: Vital Signs: Temperature is 97 degrees, pulse 79, blood pressure 152/77. HEENT: Within normal limits. Neck: Supple. Decreased wheezing. Heart: Distant heart sounds. Abdomen: Belly is soft. Extremities: There is 1+ pedal edema. ASSESSMENT AND PLAN: 1. Acute chronic obstructive pulmonary disease exacerbation. It is better. I will cut down the prednisone to 40 mg intravenously daily. 2. Nicotine abuse. Quit smoking. 3. Evaluation of oxygen at home. 4. Peripheral arterial disease in both legs, under the care of Dr. Leonard. Nicotine cessation program was ordered, and will follow up. LEVEL OF DOCUMENTATION: 25 minutes. cc: Valerio Venegas MD
[2019-11-05] MEDS: LEVAQUIN 500 MG/D5W 500 MG/100 ML IVPB IV SCH (12:42)
[2019-11-05] MEDS: PROTONIX IV SCH (12:45)
[2019-11-05] MEDS: ROCEPHIN 1 GM in NS 50 ML IV SCH (15:05)
[2019-11-05] MEDS: NICODERM PATCH TD PRN (21:51)
[2019-11-06] MEDS: HUMULIN R SUBQ SCH (06:05)
[2019-11-06 07:58] VITALS: BP 155/69
[2019-11-06] MEDS: DUONEB (A & A) INH PRN (08:58)
[2019-11-06] MEDS: BREO ELLIPTA 100/25 MCG INH INH SCH (08:59)
[2019-11-06] MEDS ORDERED: SOLU-MEDROL IV SCH (09:00)
[2019-11-06] MEDS: LOVENOX SUBQ SCH (09:39)
[2019-11-06] MEDS: NEURONTIN PO SCH (09:40)
[2019-11-06] MEDS: XALATAN 0.005% OPH SOLN BOTH EYES SCH (09:41)
[2019-11-06] MEDS: PLAVIX PO SCH (09:41)
[2019-11-06] MEDS: ASPIRIN EC PO SCH (09:41)
[2019-11-06] MEDS: VITAMIN D PO SCH (09:41)
[2019-11-06] MEDS: PLETAL PO SCH (09:41)
[2019-11-06] MEDS: ALPHAGAN P 0.1% OPHTH SOLN BOTH EYES SCH (09:42)
[2019-11-06] MEDS: TRUSOPT 2% OPH SOLN BOTH EYES SCH (09:42)
--- NOTE | 2019-11-07 10:08 | DISCHARGE SUMMARY ---
ADMISSION DATE: 10/31/2019 DISCHARGE DATE: 11/06/2019 DISCHARGING DIAGNOSIS: Acute chronic obstructive pulmonary disease exacerbation. SECONDARY DIAGNOSES: 1. Chronic obstructive pulmonary disease. 2. Ongoing tobacco abuse. 3. Type 2 diabetes. 4. Chronic kidney disease stage 3 creatinine 1.6. 5. Hyperlipidemia. 6. Glaucoma. 7. Gout. 8. Diverticulosis. 9. Coronary artery disease status post bypass surgery stable. 10. Acid reflux disease. 11. Restless legs syndrome. 12. Peripheral vascular disease in both legs with iliac stents. BRIEF HISTORY: Please see the H and P that was done on 10/31/2019. In brief, she is an 79-year- old white female with known history of COPD, ongoing tobacco abuse, failure of outpatient treatment with cough, wheezing, shortness of breath. She also has swelling of feet. HOSPITAL COURSE: She was given oxygen, bronchodilators, IV steroids, IV antibiotics. She was given nicotine cessation programs. The patient is going to see PID in both legs by Dr. Leonard in [place]. The rest of the hospital course was uneventful. At the time of discharge, a pulse oximetry around is 88% on exertion. She will qualify oxygen on exertion. LABS: CBC: White cell count 6.5 hematocrit 37, platelets 225,000. Sodium 138, potassium 4.7, BUN 45, creatinine 1.9, calcium 9.5. Hemoglobin A1c 6.3. DISCHARGE INSTRUCTIONS: 1. Pneumococcal vaccine was given 02/18/2019. Alphagan 1 drop in both eyes b.i.d., pravastatin 40 mg at bedtime, Xalatan 1 drop in both eyes b.i.d., Trusopt 2 drops both eyes b.i.d., Prefest 1 tablet daily, Ultracet 1 tablet p.o. t.i.d., glipizide 5 mg daily, multivitamin 1 tablet daily, Pletal 50 p.o. b.i.d., Plavix 75 daily, gabapentin 300 b.i.d., aspirin 81 mg daily, Lopid 600 p.o. b.i.d. Breo 100/25 mcg 1 puff daily vitamin D 3 5000 units daily, Lasix 20 mg daily, Medrol Dosepak, Polyhist DM 1 teaspoon t.i.d., doxycycline 100 p.o. b.i.d.. 2. Quit smoking. 3. Follow up in my office in 10 days. cc: Valerio Venegas MD MTDD
== END 2019-11-06 11:53 | disposition home health service (06) | DRG 192 ==
LOC: DIRADM 10:03 → EDIPHOLD 11:32 → 3N 18:40
PROVIDERS: ADMIT Internal Medicine; ATTEND Internal Medicine